=== PATIENT | female | born 1945 | race Caucasian/White ===

== ENCOUNTER 2016-07-08 13:10 | Observation (INO) ==
[2016-07-08] MEDS ORDERED: GI Cocktail 40 ML EACH PO ONE (13:20)
--- NOTE | 2016-07-08 13:23 | Emergency Department Note ---
Disposition Clinical Impression: Atypical chest pain Disposition: Admitted As Inpatient Condition: Fair Time of Disposition: 15:46 Chest Pain HPI - General Chief Complaint: ED Chest Pain Stated Complaint: Chest pain/SUTTON Time Seen by Provider: 07/08/16 13:13 Vital Signs Reviewed: Yes Nursing Notes Reviewed: Yes - History of Present Illness HPI Narrative: Patient complaining of a chest burning sensation that began this morning after she woke up. She states that she took Mylanta and ate some saltine crackers and iced tea and the pain went away. She states that it then returned around 1245 today. She describes the pain as a burning sensation in her throat and in the center of her chest that radiates to her back and up to her right jaw. She was nauseated with this initially but is not at this time. She states this is like her acid reflux. She has recently been changed on medication for her acid reflux. - Related Data Home Medications Medication Instructions Recorded Confirmed Amitriptyline [Elavil] 50 mg PO HS 07/08/16 07/08/16 Atorvastatin [Lipitor] 40 mg PO HS 07/08/16 07/08/16 Canagliflozin [Invokana] 100 mg PO DAILY 07/08/16 07/08/16 Exenatide Microspheres [Bydureon] 2 mg SQ SHEA 07/08/16 07/08/16 FLUoxetine HCl [PROzac] 20 mg PO DAILY 07/08/16 07/08/16 Fluticasone Propionate Nasal 50 mcg NS DAILY 07/08/16 07/08/16 [Flonase] Gabapentin [Neurontin] 300 mg PO TID 07/08/16 07/08/16 Insulin NPH Hum/Reg Insulin Hm 60 unit SQ BID 07/08/16 07/08/16 [Humulin 70/30 Kwikpen] Lisinopril [Zestril] 10 mg PO BID 07/08/16 07/08/16 Meloxicam [Mobic] 15 mg PO DAILY 07/08/16 07/08/16 Metformin HCl [Glucophage] 1,000 mg PO BID 07/08/16 07/08/16 Metoclopramide HCl 5 mg PO ACHS 07/08/16 07/08/16 Oxybutynin [Ditropan] 5 mg PO BID 07/08/16 07/08/16 Pantoprazole Sodium [Protonix] 40 mg PO DAILY 07/08/16 07/08/16 Primidone [Mysoline] 50 mg PO BID 07/08/16 07/08/16 Tramadol HCl [Ultram] 50 mg PO Q4H PRN 07/08/16 07/08/16 Allergies Allergy/AdvReac Type Severity Reaction Status Date / Time Influenza Virus Vaccines AdvReac Fatigued Verified 07/08/16 13:25 Review of Systems: Patient denies any fevers or chills. She denies any recent illnesses. She reports a chest burning and a throat burning sensation that started this morning and was relieved with crackers iced tea and Mylanta. She states it then returned she describes the pain as a burning sensation that goes through the back of her chest and up to her right jaw. She states she initially was nauseated and had shortness of breath with this but is not short of breath or nauseated at this time. She denies any abdominal pain. She denies any swelling or edema to any of her extremities. All systems ED: reviewed and negative except as stated. 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 Absent: scleral icterus - ENT ENT exam: normal exam, normal oropharynx, mucous membranes moist - Neck Neck exam: Present: normal inspection, full ROM, trachea midline - Chest Chest inspection: Present: normal inspection. Absent: tenderness - Respiratory Respiratory exam: Present: normal lung sounds bilaterally. Absent: respiratory distress - Cardiovascular Cardiovascular exam: Present: regular rate, normal rhythm, normal heart sounds - Abdominal Exam Abdominal exam: Present: soft, Non-Tender, normal bowel sounds. Absent: tenderness, distention, guarding, rebound, rigidity, organomegaly - Extremities Exam Extremities exam: Present: normal inspection, full ROM, normal capillary refill. Absent: tenderness, pedal edema - Back Exam Back exam: Present: normal inspection. Absent: tenderness - Neurological Exam Neurological exam: Present: alert, oriented X3 Course Course Narrative: Female patient with a history of diabetes and acid reflux presenting to the emergency department with a new complaint of a chest burning sensation. She states she has burning in her throat as well as her chest that radiates to her back and up to her jaw. She states that she does have acid reflux and this feels similar to those events in the past. She states her pain began this morning after she woke up. It was relieved with saltine crackers, a drink of cold tea, and Mylanta. It then returned or intensely. She denies any cardiac history. She denies any smoking history. She states that her father did have "heart problems" but is unaware of what they were. Patient did receive aspirin prior to arrival to the hospital. We will do an EKG and basic cardiac workup. We will also give patient a GI cocktail. She denies any nausea or shortness of breath at this time. She is in no distress and is otherwise well-appearing. She did receive aspirin in the ambulance en route to the hospital. The dose was 4 baby aspirins per patient. - Reevaluation(s) Reevaluation #1: Patient reassessed. She is resting comfortably in bed. She states her pain is down to one at this time. She states that the GI cocktail did not help with her pain it only made her nauseated. When offered nausea medication she states that she is not nauseated currently. She has also been offered pain medication and she refuses this as well. She is now reporting trouble swallowing while I am in the room. She states this is been going on for "a while." She states that she has been diagnosed with a hiatal hernia but has not been referred to a specialist for this. She denies any coughing or aspiration. Her throat is nonerythematous and nonedematous her tonsils have no exudates. They are not swollen. Time: 13:54 Reevaluation #2: Patient now requesting pain medication. She states that her pain is getting worse in her chest. She describes it as a 3/10. Give her morphine for this pain. We will admit patient for an ACS rule out. She does have EKG changes. Her pain began around 1245 We only have one troponin back which was negative. She will need a second. Time: 14:45 - Consultations Consultation #1: Dr Arboleda accepted Pt in stable condition Time: 14:52 Consultation #2: Patient resting comfortably in bed. She states her pain is gone at this time. She has no request at this time. Time: 15:30 Vital Signs Temperature 98.2 F 07/08/16 13:15 Pulse Rate 99 07/08/16 13:15 Respiratory Rate 18 07/08/16 13:15 Blood Pressure 149/80 07/08/16 13:15 O2 Sat by Pulse Oximetry 95 07/08/16 13:15 Temperature 0 F L 07/08/16 15:31 Pulse Rate 99 07/08/16 13:15 Respiratory Rate 18 07/08/16 15:31 Blood Pressure 152/87 07/08/16 15:31 O2 Sat by Pulse Oximetry 95 07/08/16 13:15 Oxygen Delivery Oxygen Delivery Room Air Chest Pain - Lab Data Result diagrams: 07/08/16 13:33 07/08/16 13:33 Lab Results 07/08/16 07/08/16 07/08/16 Range/Units 13:33 13:33 13:33 WBC 7.6 (4.3-11.1) K/mcL RBC 5.02 H (3.82-4.97) M/mcL Hgb 14.1 (11.5-15.4) g/dL Hct 43.2 (35.3-44.9) % MCV 86.1 (83.0-100.0) fL MCH 28.1 (28.0-33.3) pg MCHC 32.6 (31.6-35.5) g/dL RDW 13.6 (11.5-14.5) % Plt Count 314 (140-400) K/mcL MPV 10.0 (9.4-12.4) fL Immature Gran % 0.3 (0-4) % Seg Neutrophils % 64.0 % Lymphocytes % 27.1 % Monocytes % 5.9 % Eosinophils % 2.4 % Basophils % 0.3 % Neutrophils # 4.9 (1.6-8.9) K/mcL Lymphocytes # 2.1 (0.6-4.6) K/mcL Monocytes # 0.5 (0.0-1.3) K/mcL Eosinophils # 0.2 (0.0-0.6) K/mcL Basophils # 0.0 (0.0-0.2) K/mcL PT 11.5 (9.4-12.1) Seconds INR 1.1 APTT 33.3 (26.0-36.0) Seconds Sodium (136-145) mEq/L Potassium (3.5-4.5) mEq/L Chloride (98-109) mEq/L Carbon Dioxide (19-29) mEq/L BUN (7-20) mg/dL Creatinine (0.57-1.11) mg/dL Est GFR ( Amer) (> 60) Est GFR (Non-Af Amer) (> 60) BUN/Creatinine Ratio (6-26) Glucose (70-99) mg/dL Calculated Osmolality (280-300) Calcium (8.6-10.8) mg/dL Troponin I (0-0.03) ng/mL Lipase 18 (8-78) Units/L 07/08/16 07/08/16 Range/Units 13:33 13:33 WBC (4.3-11.1) K/mcL RBC (3.82-4.97) M/mcL Hgb (11.5-15.4) g/dL Hct (35.3-44.9) % MCV (83.0-100.0) fL MCH (28.0-33.3) pg MCHC (31.6-35.5) g/dL RDW (11.5-14.5) % Plt Count (140-400) K/mcL MPV (9.4-12.4) fL Immature Gran % (0-4) % Seg Neutrophils % % Lymphocytes % % Monocytes % % Eosinophils % % Basophils % % Neutrophils # (1.6-8.9) K/mcL Lymphocytes # (0.6-4.6) K/mcL Monocytes # (0.0-1.3) K/mcL Eosinophils # (0.0-0.6) K/mcL Basophils # (0.0-0.2) K/mcL PT (9.4-12.1) Seconds INR APTT (26.0-36.0) Seconds Sodium 133 L (136-145) mEq/L Potassium 4.8 H (3.5-4.5) mEq/L Chloride 99 (98-109) mEq/L Carbon Dioxide 24 (19-29) mEq/L BUN 19 (7-20) mg/dL Creatinine 1.02 (0.57-1.11) mg/dL Est GFR ( Amer) > 60 (> 60) Est GFR (Non-Af Amer) 54 L (> 60) BUN/Creatinine Ratio 19 (6-26) Glucose 241 H (70-99) mg/dL Calculated Osmolality 286 (280-300) Calcium 10.1 (8.6-10.8) mg/dL Troponin I 0.00 (0-0.03) ng/mL Lipase (8-78) Units/L - Radiology Data Radiology results reviewed: Yes I reviewed the patient's radiology results. I reviewed the images as well as the radiologist's report. - EKG Data EKG attestation: Yes I reviewed and interpreted this EKG. EKG results narrative: Sinus rhythm at a rate of 92. W[place] interval is 162. Respiration is 141. QT is 395. QTC is 445. Patient does have a right bundle branch block. This is new from her previous EKG dated 03/12/2014. There is no ST elevation or depression. There are T-wave inversions in 3 V1 and V2 V3 and V4.
--- NOTE | 2016-07-08 13:40 | Emergency Department Note ---
START Narrative - START START: I examined this patient and my medical decision-making was reviewed with the ELIGIBILITY EXAMINER/PA/Advanced Practice Nurse/Resident Physician. I agree with the documented findings, disposition and treatment plan as described except to the extent set forth below. ED attending note: Patient seen with emergency medicine resident Dr Hardy. We independently evaluated the patient. We independently had [id number] contact with the patient. Please see a copy of his note for details of the history and physical, evaluation, management and disposition of this emergency Department patient. Briefly: 70-year-old female by EMS for chest discomfort. Has a history of reflux and diabetes. Less no cardiac workup is unknown. EKG shows acute changes in the lateral leads as far as a barge block and V2. Compared to an EKG in 2014. Physical exam is otherwise benign. Patient had troponin lipase chest x-ray and other labs. Disposition pending. Patient stable.
[2016-07-08 13:48] LABS: Basophils % 0.3 %; Eosinophils # 0.2 K/mcL (0.0-0.6); Eosinophils % 2.4 %; Hematocrit 43.2 % (35.3-44.9); Hemoglobin 14.1 g/dL (11.5-15.4); Immature Granulocytes % 0.3 % (0-4); Lymphocytes # 2.1 K/mcL (0.6-4.6); Lymphocytes % 27.1 %; Mean Corpuscular HGB Conc 32.6 g/dL (31.6-35.5); Mean Corpuscular Hemoglobin 28.1 pg (28.0-33.3); Mean Corpuscular Volume 86.1 fL (83.0-100.0); Monocytes # 0.5 K/mcL (0.0-1.3); Monocytes % 5.9 %; Neutrophils # 4.9 K/mcL (1.6-8.9); Platelet Count 314 K/mcL (140-400); Red Blood Count 5.02 M/mcL (3.82-4.97); Red Cell Distribution Width 13.6 % (11.5-14.5)
[2016-07-08 13:54] LABS: INR 1.1; Prothrombin Time 11.5 Seconds (9.4-12.1)
[2016-07-08 13:57] LABS: Activated Partial Thrombo Time 33.3 Seconds (26.0-36.0)
[2016-07-08 14:02] LABS: BUN/Creatinine Ratio 19 (6-26); Blood Urea Nitrogen 19 mg/dL (7-20); Calcium 10.1 mg/dL (8.6-10.8); Carbon Dioxide 24 mEq/L (19-29); Chloride 99 mEq/L (98-109); Glucose 241 mg/dL (70-99); Osmolality,Calculated 286 (280-300); Potassium 4.8 mEq/L (3.5-4.5); Sodium 133 mEq/L (136-145); eGFR For African Americans > 60 (> 60); eGFR For Non-African Americans 54 (> 60)
[2016-07-08] MEDS ORDERED: *HR* Morphine 2 MG/ML SYRINGE IVP ONE (14:29)
[2016-07-08] MEDS ORDERED: Naloxone 0.4 MG/ML INJ IVP PRN (16:23)
[2016-07-08] MEDS ORDERED: traMADol 50 MG TABLET PO PRN (16:26)
[2016-07-08] MEDS ORDERED: Nitroglycerin 0.4 MG TAB.SUBL SL PRN (16:33)
[2016-07-08] MEDS ORDERED: *HR* Dextrose 50 % in Water (Syg) 50 ML SYRINGE IVP PRN (16:38)
[2016-07-08] MEDS ORDERED: D5% in Water 1,000 ML IV PRN (16:38)
[2016-07-08] MEDS ORDERED: Dextrose Gel 15 GM PO PRN ×2 (16:38)
--- NOTE | 2016-07-08 16:45 | Internal Med History&Physical ---
Date of Encounter: 07/08/16 Time of Encounter: 16:41 Assessment and Plan (1) Atypical chest pain Current visit: Yes Status: Acute Patient presents with reports of burning, sharp pain to mid chest radiating to back, up neck and to right jaw and right head. Pain was relieved by morphine. Initial troponin negative at 0.0. EKG showed sinus rhythm with HR of 92 and right bundle branch block which is new from previous EKG in 2013. CXR showed no acute process. continuous cardiac tech serial troponins for trend echocardiogram and stress test in the morning. (2) Hypertension Current visit: Yes Status: Acute Continue home dose of lisinopril. Qualifiers: Hypertension type: essential hypertension Qualified Code(s): I10 - Essential (primary) hypertension (3) Type 2 diabetes mellitus Current visit: Yes Status: Acute diabetic diet check blood sugars ACHS Hold home doses of invokana, bydureon, metformin. Basal insulin dose of 42u BID high dose sliding scale correction insulin ACHS hypoglycemic protocol. Qualifiers: Diabetes mellitus complication status: with neurologic complications Diabetes mellitus complication detail: with polyneuropathy Diabetes mellitus extermination inspector insulin use: with senior living use Qualified Code(s): E11.42 - Type 2 diabetes mellitus with diabetic polyneuropathy; Z79.4 - equipment operator intermodal yard (current) use of insulin (4) DVT prophylaxis Current visit: Yes Status: Acute encourage ambulation anti-embolic stockings Lovenox 40mg SQ BID Internal Medicine - H&P: HPI Chief complaint: chest pain Admitted From: Emergency Dept Plans for Post Hospital Care: Home History of present illness: Ms. Alejandro is a 70 year old female with hypertension, diabetes, IBS, acid reflux who presented to the emergency department today with reports of chest pain. She reports she will cut this morning at 6 AM with a sharp burning sensation in her mid chest radiating eating up to her neck, she took Mylanta and drank some tea and had some saltines and the pain went away. She reports at about noon the pain returned with sharp, burning sensation in her mid chest and radiating up to her neck and right jaw and she also had a headache on the right side of her head accompanying the chest pain pain. She had associated shortness of breath and palpitations and she decided to call the squad. She reports mild nausea, but denies any vomiting, abdominal pain, diarrhea. Denies any recent fevers, chills, sweats, body aches. She denies any lightheadedness or dizziness. In the emergency department her evaluation included a troponin which was negative at 0.0, EKG which showed sinus rhythm with heart rate of 92 and showed a right bundle branch block which is new from previous EKG, no ST elevations or depressions, and T-wave inversions in V1, V2, V3, and V4. Chest x -ray showed no acute process. She was hyperglycemic with glucose of 241, and mildly hyperkalemic with potassium of 4.8. On exam, patient is alert and oriented, in no acute distress. Her heart has regular rate and rhythm, lungs are clear bilaterally to auscultation, she has mild epigastric tenderness to palpation. Past Med Surg Social Fam HX - Past Medical History Medical history: diabetes, GERD, hypertension Psychiatric history: anxiety, depression - Past Surgical History Surgical History: cholecystectomy, hysterectomy, knee replacement - Social History Smoking Status: Never smoker Smokeless Tobacco Status: No Alcohol use: none Drug use: none - Family History Father Living Status: Cause of : Cancer Hx Family Respiratory Disorders: Yes Mother Living Status: Still Living Sister Living Status: Internal Medicine - H&P: Meds Amitriptyline [Elavil] 50 mg PO HS 07/08/16 [History] Atorvastatin [Lipitor] 40 mg PO HS 07/08/16 [History] Canagliflozin [Invokana] 100 mg PO DAILY 07/08/16 [History] Exenatide Microspheres [Bydureon] 2 mg SQ SHEA 07/08/16 [History] FLUoxetine HCl [PROzac] 20 mg PO DAILY 07/08/16 [History] Fluticasone Propionate Nasal [Flonase] 50 mcg NS DAILY 07/08/16 [History] Gabapentin [Neurontin] 300 mg PO TID 07/08/16 [History] Insulin NPH Hum/Reg Insulin Hm [Humulin 70/30 Kwikpen] 60 unit SQ BID 07/08/16 [ History] Lisinopril [Zestril] 10 mg PO BID 07/08/16 [History] Meloxicam [Mobic] 15 mg PO DAILY 07/08/16 [History] Metformin HCl [Glucophage] 1,000 mg PO BID 07/08/16 [History] Metoclopramide HCl 5 mg PO ACHS 07/08/16 [History] Oxybutynin [Ditropan] 5 mg PO BID 07/08/16 [History] Pantoprazole Sodium [Protonix] 40 mg PO DAILY 07/08/16 [History] Primidone [Mysoline] 50 mg PO BID 07/08/16 [History] Tramadol HCl [Ultram] 50 mg PO Q4H PRN 07/08/16 [History] Allergies Influenza Virus Vaccines Adverse Reaction (Verified 07/08/16 13:25) Fatigued All Systems PM: A 10-system review of systems was performed and is negative for pertinent findings except as documented above in the HPI. - Constitutional Constitutional: no chills, no fever(s), no night sweats - EENT Eyes: no change in vision, no discharge, no pain, no photophobia Ears: no ear discharge, no ear pain, no tinnitus Nose, mouth and throat: sinus pressure, no dysphagia, no nasal discharge, no neck pain, no sore throat - Cardiovascular Cardiovascular ROS IM: chest pain, dyspnea, palpitations, no diaphoresis, no lightheadedness, no syncope - Respiratory Respiratory: dyspnea, no cough, no wheezing, no excessive phlegm production - Gastrointestinal Gastrointestinal: nausea, no abdominal pain, no diarrhea, no hematemesis, no hematochezia, no melena, no vomiting - Genitourinary Genitourinary: no change in urinary stream, no dysuria, no flank pain, no hematuria - Musculoskeletal Musculoskeletal ROS IM: numbness, tingling (chronic neuropathy in bilateral finders and feet) - Integumentary Integumentary IM: no rash, no unusual bruising - Neurological Neurological ROS: numbness (chronic neuropathy in bilateral fingers and feet), tingling, no confusion, no convulsions, no focal weakness, no tremor(s) - Hematologic/Lymphatic Hematologic/Lymphatic: no easy bruising - Constitutional Vitals: Temp Pulse Resp BP Pulse Ox 0 F L 99 18 152/87 95 07/08/16 15:31 07/08/16 13:15 07/08/16 15:31 07/08/16 15:31 07/08/16 13:15 General appearance: Present: A&O X 3, no acute distress - Head Head exam: Present: atraumatic, normocephalic - Eye Eye exam: Present: PERRL, conjuntiva pink, sclera anicteric Pupils: Present: PERRL - Neck Neck exam general surgery: Present: supple, trachea midline. Absent: lymphadenopathy - Respiratory Respiratory exam: Present: CTAB. Absent: accessory muscle use, rales, rhonchi, wheezes - Cardiovascular Cardiovascular exam: Present: RRR, +S1, +S2. Absent: diastolic murmur, gallop, rubs, systolic murmur - GI/Abdominal GI/Abdominal exam: Present: normal bowel sounds, soft, no peritoneal signs. Absent: distended, tenderness - Extremities Exam Extremities exam: Present: warm, radial pulses palpable and symetrical. Absent : calf tenderness, cyanotic, pedal edema - Neurological Exam Neurological exam: Present: CN II-XII intact, oriented X3, no focal deficits. Absent: facial droop, speech deficit - Skin Skin exam: Present: dry, intact Internal Med - H&P Results - Labs CBC & Chem 7: 07/08/16 13:33 07/08/16 13:33 Labs: All Lab Results (24 Hours) 07/08/16 07/08/16 07/08/16 Range/Units 13:33 13:33 13:33 WBC 7.6 (4.3-11.1) K/mcL RBC 5.02 H (3.82-4.97) M/mcL Hgb 14.1 (11.5-15.4) g/dL Hct 43.2 (35.3-44.9) % MCV 86.1 (83.0-100.0) fL MCH 28.1 (28.0-33.3) pg MCHC 32.6 (31.6-35.5) g/dL RDW 13.6 (11.5-14.5) % Plt Count 314 (140-400) K/mcL MPV 10.0 (9.4-12.4) fL Immature Gran % 0.3 (0-4) % Seg Neutrophils % 64.0 % Lymphocytes % 27.1 % Monocytes % 5.9 % Eosinophils % 2.4 % Basophils % 0.3 % Neutrophils # 4.9 (1.6-8.9) K/mcL Lymphocytes # 2.1 (0.6-4.6) K/mcL Monocytes # 0.5 (0.0-1.3) K/mcL Eosinophils # 0.2 (0.0-0.6) K/mcL Basophils # 0.0 (0.0-0.2) K/mcL PT 11.5 (9.4-12.1) Seconds INR 1.1 APTT 33.3 (26.0-36.0) Seconds Sodium (136-145) mEq/L Potassium (3.5-4.5) mEq/L Chloride (98-109) mEq/L Carbon Dioxide (19-29) mEq/L BUN (7-20) mg/dL Creatinine (0.57-1.11) mg/dL Est GFR ( Amer) (> 60) Est GFR (Non-Af Amer) (> 60) BUN/Creatinine Ratio (6-26) Glucose (70-99) mg/dL Calculated Osmolality (280-300) Calcium (8.6-10.8) mg/dL Troponin I (0-0.03) ng/mL Lipase 18 (8-78) Units/L 07/08/16 07/08/16 Range/Units 13:33 13:33 WBC (4.3-11.1) K/mcL RBC (3.82-4.97) M/mcL Hgb (11.5-15.4) g/dL Hct (35.3-44.9) % MCV (83.0-100.0) fL MCH (28.0-33.3) pg MCHC (31.6-35.5) g/dL RDW (11.5-14.5) % Plt Count (140-400) K/mcL MPV (9.4-12.4) fL Immature Gran % (0-4) % Seg Neutrophils % % Lymphocytes % % Monocytes % % Eosinophils % % Basophils % % Neutrophils # (1.6-8.9) K/mcL Lymphocytes # (0.6-4.6) K/mcL Monocytes # (0.0-1.3) K/mcL Eosinophils # (0.0-0.6) K/mcL Basophils # (0.0-0.2) K/mcL PT (9.4-12.1) Seconds INR APTT (26.0-36.0) Seconds Sodium 133 L (136-145) mEq/L Potassium 4.8 H (3.5-4.5) mEq/L Chloride 99 (98-109) mEq/L Carbon Dioxide 24 (19-29) mEq/L BUN 19 (7-20) mg/dL Creatinine 1.02 (0.57-1.11) mg/dL Est GFR ( Amer) > 60 (> 60) Est GFR (Non-Af Amer) 54 L (> 60) BUN/Creatinine Ratio 19 (6-26) Glucose 241 H (70-99) mg/dL Calculated Osmolality 286 (280-300) Calcium 10.1 (8.6-10.8) mg/dL Troponin I 0.00 (0-0.03) ng/mL Lipase (8-78) Units/L
[2016-07-08 17:17] LABS: Hemoglobin A1C 7.7 %
[2016-07-08] MEDS: Insulin LISPRO 300 UNITS/3 ML VIAL SQ SCH (18:30)
[2016-07-08] MEDS: Primidone 50 MG TABLET PO SCH (20:32)
[2016-07-08] MEDS: Gabapentin 300 MG CAPSULE PO SCH (20:32)
[2016-07-08] MEDS: Insulin DETEMIR 100 UNIT/ML X5UNITS SQ SCH (20:32)
[2016-07-08] MEDS ORDERED: Insulin LISPRO 300 UNITS/3 ML VIAL SQ SCH (21:00)
[2016-07-09 01:26] LABS: Basophils % 0.4 %; Eosinophils # 0.2 K/mcL (0.0-0.6); Eosinophils % 2.9 %; Hematocrit 41.2 % (35.3-44.9); Hemoglobin 13.4 g/dL (11.5-15.4); Immature Granulocytes % 0.4 % (0-4); Immature Platelets 3.1 % (1.1-6.1); Lymphocytes # 2.9 K/mcL (0.6-4.6); Lymphocytes % 38.1 %; Mean Corpuscular HGB Conc 32.5 g/dL (31.6-35.5); Mean Corpuscular Hemoglobin 28.2 pg (28.0-33.3); Mean Corpuscular Volume 86.7 fL (83.0-100.0); Mean Platelet Volume 10.2 fL (9.4-12.4); Monocytes # 0.7 K/mcL (0.0-1.3); Monocytes % 8.7 %; Neutrophils # 3.7 K/mcL (1.6-8.9); Platelet Count 303 K/mcL (140-400); Red Blood Count 4.75 M/mcL (3.82-4.97); Red Cell Distribution Width 13.7 % (11.5-14.5); Segmented Neutrophils % 49.5 %
[2016-07-09 03:32] LABS: BUN/Creatinine Ratio 21 (6-26); Blood Urea Nitrogen 20 mg/dL (7-20); Calcium 9.6 mg/dL (8.6-10.8); Carbon Dioxide 24 mEq/L (19-29); Chloride 101 mEq/L (98-109); Glucose 250 mg/dL (70-99); Osmolality,Calculated 293 (280-300); Sodium 136 mEq/L (136-145); eGFR For African Americans > 60 (> 60); eGFR For Non-African Americans 57 (> 60)
[2016-07-09] MEDS ORDERED: Regadenoson 0.4 MG/5 ML SYRINGE IVP ONE (06:35)
[2016-07-09] MEDS ORDERED: FLUoxetine 20 MG CAPSULE PO SCH (09:00)
[2016-07-09] MEDS ORDERED: Fluticasone Propionate Nasal 50 MCG/SPRAY BOTTLE NS SCH (09:00)
[2016-07-09] MEDS ORDERED: NON-FORMULARY MEDICATION 1 EACH EACH (Pantoprazole Sodium [Protonix] 40 MG) PO SCH (09:00)
--- NOTE | 2016-07-09 09:08 | Nuclear Medicine Stress Report ---
Regadenoson Nuclear Stress Name: Sonal Alejandro Date of Study: 07/09/2016 Date: 1945 Ht: 63.0 in Medical Record#: [id number] Age: 70 Wt: 214.0 lb Gender: Female Order #: [id number] Location: [facility] Room: [facility] Supervising Provider: Bentley Davis CNP Reading Physician: Cristiane Villarreal DO Ordering Physician: Harpal Valdes DO Primary Care Physician: Enrique Boykin DO Stress Technologist: Eliezer Still, BENCH GRINDER, [facility] Precipitator: Anatoly Greene Indications: Chest Pain Impression: Perfusion imaging was negative for ischemia or infarct. Pharmacologic ECG was negative for ischemia at the level of heart rate achieved. Gated EF = 67%. History: Hypertension Diabetes Hypercholesteremia Stress Test Summary: Stress Test Type: Pharmacologic Regadenoson 0.4mg/5ml given IV Baseline Information: Initial Heart Rate: 90 Blood Pressure: 124/76 Stress Information: Stress Time: 4 min 00 sec Test Terminated Due to (primary): As per protocol Maximum Blood Pressure: 118/64 Maximum Heart Rate: 104 Percent Maximum Heart Rate Achieved: 68 Double Product: 22834 METS Reached: 1 Symptoms: Lightheadness Nuclear Summary: SPECT myocardial perfusion imaging using Tc99m Sestamibi given intravenously was performed at rest and following cardiac stress testing. The resting images were obtained following initial dose of 11.5 mCi. Following stress an additional dose of 35.2 mCi was given at peak exercise or 30 seconds post regadenoson infusion. Medication Given: Time Medication Dose Units Route Findings: Stress Note * Resting ECG demonstrated normal sinus rhythm with RBBB and LAFB. * Pharmacologic stress ECG is negative for ischemia at level of heart rate achieved. * No arrhythmias were noted during stress. * Patient had no chest pain during stress. Hemodynamic responses * Normal hemodynamic responses to pharmacologic stress. Study Quality * Study quality was fair. Gated EF % * Gated EF = 67%. Left Ventricle * The left ventricle is not dilated. TID * No evidence of transient ischemic dilatation. Lung Uptake * There is no evidence of increase lung uptake. NORMALS * Normal wall motion. * Normal segmental perfusion in stress. * Normal Segmental Perfusion in rest. Updated by Cristiane Villarreal on 07/09/2016 9:02:36 AM electronically signed on 07/09/2016 9:02:54 AM with status of Final
[2016-07-09] MEDS: Primidone 50 MG TABLET PO SCH (09:26)
[2016-07-09] MEDS: Gabapentin 300 MG CAPSULE PO SCH (09:27)
[2016-07-09] MEDS: Insulin LISPRO 300 UNITS/3 ML VIAL SQ SCH ×2 (09:28→12:37)
[2016-07-09] MEDS: Insulin DETEMIR 100 UNIT/ML X5UNITS SQ SCH (09:31)
[2016-07-09] MEDS ORDERED: Chloraseptic Spray 177 ML BOTTLE MM PRN (09:34)
[2016-07-09] MEDS ORDERED: Simethicone 80 MG TAB.CHEW PO PRN (10:28)
--- NOTE | 2016-07-09 11:15 | ECHO - Doppler Report ---
Echocardiogram Name: Sonal Alejandro Date of Study: 07/09/2016 Date: 1945 Ht: 63.0 in Medical Record#: [id number] Age: 70 Wt: 214.0 lb Gender: Female BSA: 1.99 Order #: [id number] Location: [facility] Room #: 2NE22 Reading Physician: Cristiane Villarreal DO [employer] Slitting Machine Operator: NEERU VelazquezT, [facility] Ordering Physician: Tamiko Slade CNP Primary Physician: Enrique Boykin DO Indications: Chest pain Impressions: LVEF 65%. Normal left ventricular size and systolic function. There is evidence of mild diastolic dysfunction of the left ventricle. Normal right ventricular size and function. No significant valvular dysfunction. No pulmonary hypertension. Left Ventricular Wall Motion: Rest Echo Findings All wall segments showed normal motion. Findings: Study Quality * Technically sub-optimal due to body habitus. ECG Findings * Normal sinus rhythm. Left Ventricle * LVEF 65%. * Normal LV chamber size, wall thickness and function. * Mild left ventricular diastolic dysfunction. Left Atrium * Normal left atrial size. Mitral Valve * Normal mitral valve structure. * No mitral stenosis. * No mitral regurgitation. Aortic Valve * No aortic regurgitation. * Aortic valve not well visualized. * No aortic stenosis. Tricuspid Valve * Tricuspid valve not well visualized. * No tricuspid regurgitation. Pulmonic Valve * Pulmonic valve is not well visualized. * No pulmonic stenosis. * No pulmonic regurgitation. Pulmonary Artery * Pulmonary artery not well visualized. Right Ventricle * Normal right ventricular structure and function. Right Atrium * Normal right atrial size. Interatrial Septum * Interatrial septum not well evaluated. IVC * The IVC is not well evaluated. Pericardium * There is no pericardial effusion present. Aorta * Not fully visualized. History Hypertension Diabetes Hypercholesteremia Family History of CAD 2015 a Previous Echo was performed. Measurements: BP: 127/ 75 2D Normal Values IVSd: 1.20 cm 0.6 - 1.0 cm LVIDd: 3.80 cm 3.7 - 5.6 cm LVPWd: 1.20 cm 0.6 - 1.1 cm LVIDs: 2.70 cm 1.5 - 3.6 cm AO: 2.80 cm < 4.0 cm LA: 3.00 cm 2.0 - 4.0cm %FS: 28.90 cm >25 % LA volume: 33 Mitral Valve Peak E:.63 m/sec Peak A:1.20 m/sec E/A Ratio:0.5 Tricuspid Valve TV Regurg Peak Grad: 18.00mmHg TV Regurg Peak [place]: 2.11m/sec Updated by Cristiane Villarreal on 07/09/2016 11:08:34 AM electronically signed on 07/09/2016 11:09:17 AM with status of Final Wall Motion [place]: 1=Normal, 2=Hypokinesis, 3=Akinesis, 4=Dyskinesis, 5=Aneurysmal, 6=Hyperkinetic, X=Not Visualized (Blank)=Missing
--- NOTE | 2016-07-09 11:53 | Discharge Summary ---
<Tee Ruiz - Last Filed: 07/09/16 13:32> Date of Encounter: 07/09/16 Time of Encounter: 11:51 - Discharge Diagnosis (1) GERD (gastroesophageal reflux disease) Priority: Primary Status: Acute Qualifiers: Esophagitis presence: esophagitis presence not specified Qualified Code(s) : K21.9 - Gastro-esophageal reflux disease without esophagitis (2) Atypical chest pain Priority: Primary Status: Acute (3) Hypertension Priority: Secondary Status: Chronic Qualifiers: Hypertension type: essential hypertension Qualified Code(s): I10 - Essential (primary) hypertension (4) Type 2 diabetes mellitus Priority: Secondary Status: Chronic Qualifiers: Diabetes mellitus complication status: with neurologic complications Diabetes mellitus complication detail: with polyneuropathy Diabetes mellitus superintendent terminal insulin use: with superintendent terminal use Qualified Code(s): E11.42 - Type 2 diabetes mellitus with diabetic polyneuropathy; Z79.4 - intermediate frame tender (current) use of insulin - Discharge Medications Prescriptions: Pantoprazole Sodium [Protonix] 40 mg PO DAILY #30 tablet.dr Bayron Medications: Amitriptyline [Elavil] 50 mg PO HS 07/08/16 [History] Atorvastatin [Lipitor] 40 mg PO HS 07/08/16 [History] Canagliflozin [Invokana] 100 mg PO DAILY 07/08/16 [History] Exenatide Microspheres [Bydureon] 2 mg SQ SHEA 07/08/16 [History] FLUoxetine HCl [Prozac] 20 mg PO DAILY 07/08/16 [History] Fluticasone Propionate Nasal [Flonase] 50 mcg NS DAILY 07/08/16 [History] Gabapentin [Neurontin] 300 mg PO TID 07/08/16 [History] Insulin NPH Hum/Reg Insulin Hm [Humulin 70/30 Kwikpen] 60 unit SQ BID 07/08/16 [ History] Lisinopril [Zestril] 10 mg PO BID 07/08/16 [History] Metformin HCl [Glucophage] 1,000 mg PO BID 07/08/16 [History] Metoclopramide HCl 5 mg PO ACHS 07/08/16 [History] Oxybutynin [Ditropan] 5 mg PO BID 07/08/16 [History] Primidone [Mysoline] 50 mg PO BID 07/08/16 [History] Tramadol HCl [Ultram] 50 mg PO Q4H PRN 07/08/16 [History] Pantoprazole Sodium [Protonix] 40 mg PO DAILY #30 tablet. 07/09/16 [Rx] Allergies/Adverse Reactions: Allergies Influenza Virus Vaccines Adverse Reaction (Verified 07/08/16 13:25) Fatigued Procedures/tests Complete & Pending: Procedures Performed prior 72 hours Category Date Time Status NM claudia perf SPECT multi [NM] Routine Exams 07/08/16 16:35 Taken EV echocardiogram Routine Y 07/09/16 16:35 Completed SP pharm nuclear stress Routine Y 07/09/16 07:30 Completed Date of admission: 07/08/16 15:22 Primary care physician: Nirmal Arguelles Discharging clinician: Tee Ruiz Anticipated date of discharge: 07/09/16 - Patient Status Disposition: Home, Self-Care Condition: Fair Functional capacity at discharge: independent ambulation Overall status at discharge: patient is progressing back to baseline - Discharge Instructions Instructions: Chest Pain (DC), Gastroesophageal Reflux Disease (DC) Follow Up With: Enrique Boykin DO [Primary Care Provider] - 07/14/16 8:30 am (3@1200) Additional Instructions: Please follow up with your primary care physician as scheduled. Please restart your home medications. Please start protonix daily. Please return for new or worsening symptoms. - Diet and Activity Activity: increase activity as tolerated Diet: advance to your usual diet Interval History: Patient seen and examined at bedside. Patient states she feels better today. Patient has no complaints. Patient denies chest pain, shortness of breath. Hospital course: Ms. Alejandro is a 70 year old female with history of diabetes, hypertension, hyperlipidemia presented to the emergency department with chest pain. Patient had an initial episode of chest pain that she states started in her stomach and traveled up her chest, she took Mylanta and had initial relief. She then had a recurrent episode of similar chest pain that would not go away so she presented to the emergency department. Patient was admitted for chest pain rule out, she had negative troponins, stress test and echocardiogram performed this morning were unremarkable, no evidence of ischemia. At the time of discharge the patient was chest pain-free and the patient herself attributed her symptoms to GERD. Patient will be discharged home in stable condition. - Time Spent with Patient Total time spent providing and/or coordinating discharge services: - Constitutional Vitals: Temp Pulse Resp BP Pulse Ox 98.6 F 88 16 130/78 95 07/09/16 08:58 07/09/16 08:58 07/09/16 08:58 07/09/16 08:58 07/09/16 08:58 General appearance: Present: A&O X 3, no acute distress <Harpal Valdes - Last Filed: 07/09/16 14:15> Date of Encounter: 07/09/16 - Discharge Diagnosis (1) Atypical chest pain Status: Acute (2) GERD (gastroesophageal reflux disease) Status: Acute Qualifiers: Esophagitis presence: esophagitis presence not specified Qualified Code(s) : K21.9 - Gastro-esophageal reflux disease without esophagitis (3) Hypertension Status: Chronic Qualifiers: Hypertension type: essential hypertension Qualified Code(s): I10 - Essential (primary) hypertension (4) Type 2 diabetes mellitus Status: Chronic Qualifiers: Diabetes mellitus complication status: with neurologic complications Diabetes mellitus complication detail: with polyneuropathy Diabetes mellitus mcfp insulin use: with superintendent terminal use Qualified Code(s): E11.42 - Type 2 diabetes mellitus with diabetic polyneuropathy; Z79.4 - care home (current) use of insulin Procedures/tests Complete & Pending: Procedures Performed prior 72 hours Category Date Time Status NM claudia perf SPECT multi [NM] Routine Exams 07/08/16 16:35 Taken EV echocardiogram Routine Y 07/09/16 16:35 Completed SP pharm nuclear stress Routine Y 07/09/16 07:30 Completed Date of admission: 07/08/16 15:22 Primary care physician: Nirmal Arguelles Hospital course: Ms. Alejandro is a 70 year old female - Time Spent with Patient Total time spent providing and/or coordinating discharge services: - Constitutional Vitals: Temp Pulse Resp BP Pulse Ox 98.9 F 86 16 148/66 93 L 07/09/16 11:57 07/09/16 11:57 07/09/16 11:57 07/09/16 11:57 07/09/16 11:57 - Attending Attestation I examined this patient and my medical decision-making was reviewed with the Resident Physician on 07/09/16. I agree with the documented findings, disposition and treatment plan as described except to the extent set forth below. Ms. Alejandro is feeling OK today. She still has some gassy feeling but no new issues. Stress test negative. Echo good. Feels ready to go home. Exam Alert. Comfortable Heart reg No wheeze No edema I/P 1. Chest pain due to GERD 2. HTN 3. DM Plan d/c today with outpatient follow up.
[2016-07-09 12:03] VITALS: BP 148/66
--- NOTE | 2016-07-11 16:10 | Electrocardiograph Report ---
[facility] [employer] Test Date: 2016-07-08 Pat Name: Sonal Alejandro Department: 104 Room: 2NE22 Gender: F Plan Coordinator: : 1945 Requested By: Jeanna Hardy Order Number: [id number] Reading MD: Yan Carter MD Measurements Intervals [place] Rate: 92 P: 36 NH: 162 QRS: 65 QRSD: 141 T: -23 QT: 395 QTc: 445 Interpretive Statements SINUS RHYTHM RIGHT BUNDLE BRANCH BLOCK Electronically Signed On 07-11-2016 16:08:01 EST by Yan Carter MD
== END 2016-07-09 14:00 | disposition home or self-care (01) ==
LOC: EMEROO 13:10 → 2NENU 13:10
PROVIDERS: ADMIT Internal Medicine; ATTEND Internal Medicine

== ENCOUNTER 2017-05-27 11:27 | Observation (INO) ==
--- NOTE | 2017-05-26 16:43 | Discharge Summary ---
<Yarelis Yañez E - Last Filed: 05/26/17 16:40> Date of Encounter: 05/26/17 - Discharge Diagnosis (1) Osteoarthritis of left knee Priority: Primary Status: Chronic Qualifiers: Osteoarthritis type: unspecified Qualified Code(s): M17.12 - Unilateral primary osteoarthritis, left knee (2) Insulin dependent diabetes mellitus Priority: Secondary Status: Chronic (3) HTN (hypertension) Priority: Secondary Status: Chronic Qualifiers: Hypertension type: unspecified Qualified Code(s): I10 - Essential (primary ) hypertension (4) HLD (hyperlipidemia) Priority: Secondary Status: Chronic Qualifiers: Hyperlipidemia type: unspecified Qualified Code(s): E78.5 - Hyperlipidemia , unspecified (5) OAB (overactive bladder) Priority: Secondary Status: Chronic (6) Obesity Priority: Secondary Status: Chronic Qualifiers: Obesity type: unspecified obesity type Obesity classification: unspecified obesity classification Serious obesity comorbidity presence: unspecified whether serious comorbidity present Qualified Code(s): E66.9 - Obesity, unspecified (7) Depression Priority: Secondary Status: Chronic Qualifiers: Depression Type: unspecified Qualified Code(s): F32.9 - Major depressive disorder, single episode, unspecified (8) Diabetic neuropathy Priority: Secondary Status: Chronic Qualifiers: Diabetes mellitus type: type 2 Diabetes mellitus complication detail: with other neurological complication Qualified Code(s): E11.49 - Type 2 diabetes mellitus with other diabetic neurological complication (9) Status post total right knee replacement Priority: Secondary Status: Chronic - Discharge Medications Home Medications: Amitriptyline [Elavil] 50 mg PO HS 07/08/16 [History] FLUoxetine HCl [Prozac] 20 mg PO DAILY 07/08/16 [History] Fluticasone Propionate Nasal [Flonase] 50 mcg NS DAILY 07/08/16 [History] Gabapentin [Neurontin] 300 mg PO TID 07/08/16 [History] Insulin NPH Hum/Reg Insulin Hm [Humulin 70/30 Kwikpen] 60 unit SQ BID 07/08/16 [ History] Lisinopril [Zestril] 10 mg PO BID 07/08/16 [History] Metoclopramide HCl 5 mg PO ACHS 07/08/16 [History] Oxybutynin [Ditropan] 5 mg PO BID 07/08/16 [History] Primidone [Mysoline] 50 mg PO BID 07/08/16 [History] Tramadol HCl [Ultram] 50 mg PO Q4H PRN 07/08/16 [History] Aspirin Enteric Coated [Aspirin EC] 325 mg PO DAILY 21 Days #21 tablet. [Rx] OxyCODONE Immed Rel [Roxicodone 5 MG] 5 mg PO Q6HR PRN 7 Days #28 tablet [Rx] Colestipol HCl [Colestid] 2 gm PO BID 05/27/17 [History] Empagliflozin [Jardiance] 10 mg PO DAILY 05/27/17 [History] Metformin HCl [Glucophage] 1,000 mg PO BID 05/27/17 [History] Pantoprazole Sodium [Protonix] 40 mg PO DAILY 05/27/17 [History] Rosuvastatin Calcium [Crestor] 20 mg PO HS 05/27/17 [History] Allergies/Adverse Reactions: 3 Allergy/AdvReac Type Severity Reaction Status Date / Time Influenza Virus Vaccines AdvReac Anaphylaxis Verified 05/27/17 12:55 nicotine AdvReac flu like Verified 05/27/17 12:55 symptoms Primary care physician: Nirmal Arguelles - Patient Status Disposition: Home, Self-Care Condition: Good - Discharge Instructions Follow Up With: Enrique Boykin DO [Primary Care Provider] - - Hospital Course Hospital course: Ms. Alejandro is a 71 year old female - Time Spent with Patient Total time spent providing and/or coordinating discharge services: <Too Schmidt - Last Filed: 05/28/17 10:15> Date of Encounter: 05/28/17 Time of Encounter: 10:15 - Discharge Diagnosis (1) Hypertension Priority: Secondary Status: Chronic Qualifiers: Hypertension type: essential hypertension Qualified Code(s): I10 - Essential (primary) hypertension (2) Type 2 diabetes mellitus Priority: Secondary Status: Chronic Qualifiers: Diabetes mellitus complication status: with neurologic complications Diabetes mellitus complication detail: with polyneuropathy Diabetes mellitus half-way insulin use: with half-way use Qualified Code(s): E11.42 - Type 2 diabetes mellitus with diabetic polyneuropathy; Z79.4 - FDC (current) use of insulin (3) DVT prophylaxis Priority: Secondary Status: Chronic (4) GERD (gastroesophageal reflux disease) Priority: Secondary Status: Chronic Qualifiers: Esophagitis presence: esophagitis presence not specified Qualified Code(s) : K21.9 - Gastro-esophageal reflux disease without esophagitis (5) Aphthous ulcer Priority: Secondary Status: Inactive (6) Osteoarthritis of left knee Priority: Primary Status: Chronic Qualifiers: Osteoarthritis type: unspecified Qualified Code(s): M17.12 - Unilateral primary osteoarthritis, left knee (7) Insulin dependent diabetes mellitus Priority: Secondary Status: Chronic (8) HLD (hyperlipidemia) Priority: Secondary Status: Chronic Qualifiers: Hyperlipidemia type: unspecified Qualified Code(s): E78.5 - Hyperlipidemia , unspecified (9) OAB (overactive bladder) Priority: Secondary Status: Chronic (10) Depression Priority: Secondary Status: Chronic Qualifiers: Depression Type: unspecified Qualified Code(s): F32.9 - Major depressive disorder, single episode, unspecified (11) Status post total right knee replacement Priority: Secondary Status: Chronic (12) Status post total left knee replacement Priority: Primary Status: Acute Primary care physician: Nirmal Arguelles - Patient Status Functional capacity at discharge: uses cane/walker Overall status at discharge: patient is progressing back to baseline - Hospital Course Hospital course: Ms. Alejandro is a 71 year old female Status post left total knee replacement The patient had an uneventful postoperative course. They received antibiotics and physical therapy and were discharged in stable condition. There will follow -up in the office in 2 weeks. - Time Spent with Patient Total time spent providing and/or coordinating discharge services:
--- NOTE | 2017-05-26 16:44 | Physician Discharge Referral ---
Home Health/Hosp Referral Info Transfer to: Home Health Attending Provider: Dr Too Schmidt - Diagnosis (1) Osteoarthritis of left knee Priority: Primary Status: Chronic (2) Insulin dependent diabetes mellitus Priority: Secondary Status: Chronic (3) HTN (hypertension) Priority: Secondary Status: Chronic (4) HLD (hyperlipidemia) Priority: Secondary Status: Chronic (5) OAB (overactive bladder) Priority: Secondary Status: Chronic (6) Obesity Priority: Secondary Status: Chronic (7) Depression Priority: Secondary Status: Chronic (8) Diabetic neuropathy Priority: Secondary Status: Chronic (9) Status post total right knee replacement Priority: Secondary Status: Chronic (10) Status post total left knee replacement Priority: Primary Status: Acute - Respiratory Orders Smoking Cessation: Smoking cessation has been advised. For more information, call the [employer] Quit Line at 3-116-XLFF-NOW. - Dressing/Wound Care Site: left knee Type of Dressing/Treatments w/Frequency: Opsite placed. Keep dressing intact until first follow up appointment. If > 50% saturated, notify office, remove dressing and place appropriate dressing back in place. Leave Zipline intact. Opsite dressing is water resistant, not water- proof. OK to shower, but do not get dressing wet. - Diet/Nutrition Diet/Nutrition Orders: Regular - Activity Activity Orders: Up ad ismael, Ambulate, Chair, Walker Activity: List: Total Knee replacement Precautions x 6 weeks Apply cold therapy wrap 3-6x/day for 20 minutes at a time. Encourage ambulation throughout the day and incentive spirometer 10x/hour. Elevate affected extremity above heart as tolerated. Brace: Wear knee immobilizer at night x 2 weeks. - Services Needed Following services are medically necessary services: Nursing, Home Health Aide, Physical Therapy, Occupational Therapy - Transfer Medications Prescriptions: OxyCODONE Immed Rel [Roxicodone 5 MG] 5 mg PO Q6HR PRN 7 Days #28 tablet PRN Reason: Pain Aspirin Enteric Coated [Aspirin EC] 325 mg PO DAILY 21 Days #21 tablet.dr Verma Medications: Amitriptyline [Elavil] 50 mg PO HS 07/08/16 [History] Atorvastatin [Lipitor] 40 mg PO HS 07/08/16 [History] Canagliflozin [Invokana] 100 mg PO DAILY 07/08/16 [History] Exenatide Microspheres [Bydureon] 2 mg SQ SHEA 07/08/16 [History] FLUoxetine HCl [Prozac] 20 mg PO DAILY 07/08/16 [History] Fluticasone Propionate Nasal [Flonase] 50 mcg NS DAILY 07/08/16 [History] Gabapentin [Neurontin] 300 mg PO TID 07/08/16 [History] Insulin NPH Hum/Reg Insulin Hm [Humulin 70/30 Kwikpen] 60 unit SQ BID 07/08/16 [ History] Lisinopril [Zestril] 10 mg PO BID 07/08/16 [History] Metformin HCl [Glucophage] 1,000 mg PO BID 07/08/16 [History] Metoclopramide HCl 5 mg PO ACHS 07/08/16 [History] Oxybutynin [Ditropan] 5 mg PO BID 07/08/16 [History] Primidone [Mysoline] 50 mg PO BID 07/08/16 [History] Tramadol HCl [Ultram] 50 mg PO Q4H PRN 07/08/16 [History] Pantoprazole Sodium [Protonix] 40 mg PO DAILY #30 tablet. 07/09/16 [Rx] Albuterol Sulfate [Albuterol Inhaler] 2 puff IH QID #1 inhaler 01/03/17 [Rx] Nystatin [Nystatin Suspension] 100,000 units PO QID #120 ml 01/03/17 [Rx] Benzonatate [Tessalon] 100 mg PO TID #15 capsule 01/24/17 [Rx] Chlorhexidine Gluconate [Betasept] 10 ml PO TID #118 ml 01/24/17 [Rx] Clindamycin HCl [Cleocin HCl] 300 mg PO TID #30 cap 01/24/17 [Rx] Guaifenesin [Mucinex] 600 mg PO BID #30 tab.er.12h 01/24/17 [Rx] methylPREDNISolone [Medrol] 4 mg PO DAILY 5 Days tablet 01/24/17 [Rx] Benzonatate [Tessalon] 200 mg PO TID PRN #30 capsule 05/05/17 [Rx] Guaifenesin [Mucinex] 600 mg PO BID #20 tab.er.12h 05/05/17 [Rx] cephALEXin [Keflex] 500 mg PO QID #40 capsule 05/05/17 [Rx] Aspirin Enteric Coated [Aspirin EC] 325 mg PO DAILY 21 Days #21 tablet. [Rx] OxyCODONE Immed Rel [Roxicodone 5 MG] 5 mg PO Q6HR PRN 7 Days #28 tablet [Rx] Allergies/Adverse Reactions: 3 Allergy/AdvReac Type Severity Reaction Status Date / Time Influenza Virus Vaccines AdvReac Anaphylaxis Verified 05/14/17 14:31 nicotine AdvReac flu like Verified 05/14/17 14:31 symptoms Certification: Further, I certify that my clinical findings support that this patient is homebound (i.e. absences from home require considerable and taxing effort and are for medical reasons or taoism services or infrequently or short duration when for other reasons) because: Homebound Reason: Post-surgery restriction and or conditions limit ability to leave home Attestation: My signature below is to certify that this patient is under my care and that I, or nurse practitioner, or a physician blood donor unit assistant working with me, has a face-to- face encounter with this patient.
[~2017-05-27 11:27] MED LIST: Povidone-Iodine 22.5 ML, Sodium Chloride IRRigation 500 ML IR ONE; Povidone-Iodine 5% 60 ML, Sodium Chloride IRRigation 500 ML IR ONE
[2017-05-27] MEDS ORDERED: CeFAZolin Syr 2,000MG/20 ML 2,000 MG/20 ML SYRINGE IVPB ONE (11:50)
[2017-05-27] MEDS ORDERED: Famotidine 20 MG/2 ML VIAL IVP ONE (12:12)
[2017-05-27] MEDS ORDERED: Gabapentin 300 MG CAPSULE PO ONE (12:12)
--- NOTE | 2017-05-27 12:12 | History & Physical Report ---
Date of Encounter: 05/27/17 Time of Encounter: 12:12 24 Hour HP Update - Instructions Instructions: If the History and Physical is less than 30 days old and was completed prior to A.M. admission and or procedure and has NOT been updated on calendar day of procedure please complete this update prior to performing procedure. - Update Patient reports changes in Medical Condition: No Changes in examination, assessment, or condition: No Changes in Medication: No Preop tests/diagnostics Reviewed: Yes Surgery Remains Indicated: Yes Consent for Planned Operative Procedure(s) Verified: Yes - Pre-Operative Checklist Preoperative Checklist Indicated: No Prophylactic Antibiotic Ordered: Yes Is VTE Prophylaxis Indicated?: Yes
[2017-05-27] MEDS ORDERED: ROPIVACAINE HCL/PF 0.5% 30 ML VIAL ONE (12:16)
--- NOTE | 2017-05-27 12:39 | Anesthesia Evaluation PreOp ---
Date of Encounter: 05/27/17 Time of Encounter: 12:30 - Past History Planned Operation: Lt TKA Cardiac History: HTN, Hyperlipidemia Pulmonary History: Denies Any Significant HX ACADEMIC AFFAIRS SPECIALIST History: Other (Neuropathy) Other Medical History: Diabetes Type II, Other (Obese) Anesthesia History: No Prior Anesthetic Complications : No Alcohol Use: none Drug use: none Medications and Allergies Amitriptyline [Elavil] 50 mg PO HS 07/08/16 [History] Atorvastatin [Lipitor] 40 mg PO HS 07/08/16 [History] Canagliflozin [Invokana] 100 mg PO DAILY 07/08/16 [History] Exenatide Microspheres [Bydureon] 2 mg SQ SHEA 07/08/16 [History] FLUoxetine HCl [Prozac] 20 mg PO DAILY 07/08/16 [History] Fluticasone Propionate Nasal [Flonase] 50 mcg NS DAILY 07/08/16 [History] Gabapentin [Neurontin] 300 mg PO TID 07/08/16 [History] Insulin NPH Hum/Reg Insulin Hm [Humulin 70/30 Kwikpen] 60 unit SQ BID 07/08/16 [ History] Lisinopril [Zestril] 10 mg PO BID 07/08/16 [History] Metformin HCl [Glucophage] 1,000 mg PO BID 07/08/16 [History] Metoclopramide HCl 5 mg PO ACHS 07/08/16 [History] Oxybutynin [Ditropan] 5 mg PO BID 07/08/16 [History] Primidone [Mysoline] 50 mg PO BID 07/08/16 [History] Tramadol HCl [Ultram] 50 mg PO Q4H PRN 07/08/16 [History] Pantoprazole Sodium [Protonix] 40 mg PO DAILY #30 tablet. 07/09/16 [Rx] Albuterol Sulfate [Albuterol Inhaler] 2 puff IH QID #1 inhaler 01/03/17 [Rx] Nystatin [Nystatin Suspension] 100,000 units PO QID #120 ml 01/03/17 [Rx] Benzonatate [Tessalon] 100 mg PO TID #15 capsule 01/24/17 [Rx] Chlorhexidine Gluconate [Betasept] 10 ml PO TID #118 ml 01/24/17 [Rx] Clindamycin HCl [Cleocin HCl] 300 mg PO TID #30 cap 01/24/17 [Rx] Guaifenesin [Mucinex] 600 mg PO BID #30 tab.er.12h 01/24/17 [Rx] methylPREDNISolone [Medrol] 4 mg PO DAILY 5 Days tablet 01/24/17 [Rx] Benzonatate [Tessalon] 200 mg PO TID PRN #30 capsule 05/05/17 [Rx] Guaifenesin [Mucinex] 600 mg PO BID #20 tab.er.12h 05/05/17 [Rx] cephALEXin [Keflex] 500 mg PO QID #40 capsule 05/05/17 [Rx] Aspirin Enteric Coated [Aspirin EC] 325 mg PO DAILY 21 Days #21 tablet. [Rx] OxyCODONE Immed Rel [Roxicodone 5 MG] 5 mg PO Q6HR PRN 7 Days #28 tablet [Rx] 3 Allergy/AdvReac Type Severity Reaction Status Date / Time Influenza Virus Vaccines AdvReac Anaphylaxis Verified 05/14/17 14:31 nicotine AdvReac flu like Verified 05/14/17 14:31 symptoms - Meds/Allergy Pre-op Review Medications Reviewed: Yes Allergies Reviewed: Yes Beta Blockers on Current Med List: No Anesthesia Results - Labs Laboratory Tests 05/14/17 05/14/17 14:45 14:45 Hgb 12.2 Hct 39.0 Plt Count 314 Sodium 138 Potassium 4.7 BUN 9 Creatinine 0.98 - Imaging EKG: report reviewed (SR Rt BBB) Additional studies: Stress Test negative for ischemia EF 67% Anesthesia Exam O2 Sat Height 1.64 m Height 1.64 m Height 1.64 m Weight 97.069 kg Weight 97.069 kg Weight 97.069 kg O2 Sat by Pulse Oximetry 94 O2 Sat by Pulse Oximetry 94 Vital Signs Temp Pulse Resp BP Pulse Ox 97.7 F 97 18 116/70 94 05/27/17 11:56 05/27/17 11:56 05/27/17 11:56 05/27/17 11:56 05/27/17 11:56 Height: 5'4 Weight: 214 lbs NPO (# of Hours): MN Pain Scale: 0 - HEENT Pupil (Motor): Pupils equal, EOMI Mallampati: III Teeth: Normal Oral Opening: Less than or equal to 3 - ACADEMIC AFFAIRS SPECIALIST LOC: Oriented ACADEMIC AFFAIRS SPECIALIST Motor: Normal RUE, Normal LUE, Normal RLE, Normal LLE, Normal Face ACADEMIC AFFAIRS SPECIALIST Sensory: Normal: RUE, LUE, Face, Deficit: RLE (paresthesia toes), LLE - Cardiac Rhythm: Regular Murmur: None JVD: No Carotid Bruit: No - Pulmonary Breath Sounds: bilateral Clear Respiratory Effort: Symmetrical Anesthesia Assess/Plan ASA Score: 3 (HTN DM) Modified [place] Scale for Level of Consciousness: Cooperative, oriented, and tranquil Anesthetic Plan: General, Regional Monitoring Plan: Standard Monitors Recovery Plan: Other (Discussed GA and RA, agrees to proceed)
[2017-05-27] MEDS ORDERED: Bupivacaine/Clonidine Syringe 1 EACH SYRINGE ONE (12:48)
[2017-05-27] MEDS ORDERED: Ethanol\\Acetic Acid\\Na Ace\\Ben 1,000 ML IRRIG.SOLN IR ONE (12:56)
[2017-05-27] MEDS ORDERED: Lidocaine -MPF 2% 2 ML VIAL ONE (13:32)
[2017-05-27] MEDS ORDERED: *HR* Propofol 200 MG/20 ML VIAL IVP ONE (13:32)
[2017-05-27] MEDS ORDERED: *HR* FentaNYL (PF) 100 MCG/2 ML VIAL ONE ×2 (13:32→13:39)
[2017-05-27] MEDS ORDERED: *HR* Midazolam HCl 2 MG/2 ML VIAL ONE (13:32)
--- NOTE | 2017-05-27 13:49 | Anesthesia Procedures ---
Date of Encounter: 05/27/17 Time of Encounter: 13:47 Procedures: Anesthesia - Nerve Block Procedure Date: 05/27/17 Time: 13:47 Allergies/Adv Reactions: Influenza Virus Vaccines Adverse Reaction (Verified 05/27/17 12:55) Anaphylaxis nicotine Adverse Reaction (Verified 05/27/17 12:55) flu like symptoms Pre-op Diagnosis: oa left knee Surgical Procedure: left total knee Checklist: Correct Patient Identifier, Correct procedure, History checked Correct side: Left Blood Thinner: No Monitor Applied: EKG, BP, Pulse Oximetry Supplemental Oxygen via Nasal Cannula (L/min): 2 Sedation: Versed (mg): 2 Sedation: Fentanyl (mcg): 100 Indication: Post Op Analgesia Pre-op Neuro Deficits: No Block Type: Femoral, Other (ipack) Catheter placed: No Sterile Technique: Yes Ultrasound used: Yes Anatomy identified: Yes Visual spread of Local: Yes Neuro Stimulation: No Blood on Needle Aspiration: No Smooth Injection of Local: Yes Pain with Injection of Local: No Prep: Chlorhexadine Needle: 22 x 50 mm Stimuplex (femoral) Local: 0.25% Bupivicaine w/Clonidine 20 mcg/cc (ipack 20 cc), Ropivacaine (30ml 0.5% ropivicaine for femoral) Volume (cc): 50 Number of Attempts: 1 Complications: None/effective block
[2017-05-27] MEDS ORDERED: Ondansetron 4 MG/2 ML VIAL IVP ONE (13:50)
[2017-05-27] MEDS ORDERED: *HR* HYDROmorphone (PF) 1 MG/ML SYRINGE IVP PRN ×2 (13:50→15:50)
--- NOTE | 2017-05-27 13:52 | Orthopedic Operative Note ---
Date of procedure: 05/27/17 Pre-op diagnosis: Left knee arthritis Post-op diagnosis: same Procedure: Procedure: Left Total knee replacement Estimated blood loss: 200 cc Hardware: Metal and polyethylene replacement. Arthrex Femur: 5 Tibia: 5 PS insert: 14 Patella: 37 Exam Under anesthesia: Loss of full extension 50 degrees flexion to 120 degrees no instability Procedural Notes: Grade 4 arthritic changes all 3 compartments. Operative procedure: The patient was brought to the operating room and placed on the operating room table. After general anesthesia was administered the operative knee was examined. Findings were noted in the exam under anesthesia. The operative extremity was prepped and draped in sterile surgical fashion. The patient received IV antibiotics prior to skin incision. A standard midline incision was made centered over the patella. The incision was made through the skin and subcutaneous tissue. A medial parapatellar tendon approach was performed. Care was taken to preserve tissue along the medial aspect of the patella. And to protect the patella tendon. The deep MCL was released off the medial tibia. The infra patella fat pad was excised. Knee was brought into flexion. Patient noted to have grade 4 arthritic changes all 3 compartments. The entry hole was made for the intramedullary femoral guide. The guide was seated in 6 degrees of valgus. Anterior cut was made followed by the distal cut. The ACL the PCL the medial and the lateral menisci were excised. The tibia was subluxed forward. The entry hole was made for the intramedullary tibial guide. Guide was seated to resect 2 mm off the more abnormal side. The knee was brought into flexion the distal femur was sized to a 5. The femoral guide was seated, the anterior cut was made followed by the posterior condylar cut, followed by the chamfer cuts. The finishing guide was seated the box cut was made and the lug holes were drilled. The tibia was sized to a 5, the tibial tray was seated and prepared with the large drill followed by the fin cutter. Trial reduction revealed full extension no varus valgus instability with the appropriate 14 PS Samina. The patella was everted and cut was made at the level of the insertion of the quadriceps and patella tendon. The patella was sized to a 37 the guide was seated and the lug holes are drilled. Trial reduction revealed excellent patella tracking. All trial components were removed all bony surfaces were irrigated. The tibia was cemented first followed by the femur. The 14 PS Samina was seated and the knee was brought into full extension. The patella was cemented and held in place with the patellar holding clamp. After the cement had hardened, the knee sat for 2 minutes with a Betadine saline solution. The knee was closed by the PA. The knee was then irrigated out with 2 L of pulse irrigation. The extensor mechanism was closed with #2 FiberWire suture and #2 PDS suture. The subcutaneous tissue was then irrigated and closed deep with #1 PDS suture superficially with 0 PDS suture and skin was closed with skin aroldo. The patient was then placed in a sterile dressing and a postoperative brace extubated and transferred to recovery room in stable condition. Anesthesia: GETA Surgeon: Too Schmidt Was there an assistant district attorney present: Yes Underwriting Service Representative: Yarelis Yañez Estimated blood loss (cc): 200 Condition: stable Disposition: PACU
[2017-05-27] MEDS ORDERED: Ondansetron 4 MG/2 ML VIAL ONE (14:05)
[2017-05-27 15:17] LABS: Hematocrit 36.4 % (35.3-44.9); Hemoglobin 11.3 g/dL (11.5-15.4)
--- NOTE | 2017-05-27 15:26 | Anesthesia Evaluation Post Op ---
Date of Encounter: 05/27/17 Time of Encounter: 15:30 - Vital Signs Vital Signs: Vital Signs/O2 Sat/Glucose, Most Current Temp Pulse Resp BP Pulse Ox 05/27/17 15:17 75 16 141/59 94 05/27/17 15:07 98.3 F 75 16 138/59 95 05/27/17 14:57 73 16 127/56 97 05/27/17 14:47 73 16 124/54 96 05/27/17 14:37 98.9 F 88 18 135/69 98 05/27/17 13:00 90 16 128/67 99 05/27/17 12:47 85 18 145/71 97 05/27/17 11:59 97.7 F 97 18 116/70 94 05/27/17 11:56 97.7 F 97 18 116/70 94 - Lungs Lungs: Clear Ascult./Percussion - Airway Airway: Non-obstructed - Cardiovascular Regular Rate - Mental Status Mental Status: Alert & Oriented, Answers Appropriately - Pain Pain Scale: 1 - Nausea Vomiting Nausea Vomiting: Not Present - Hydration Hydration: Ice chips - Discharge PostOp Status: Transfer Patient to floor
[2017-05-27] MEDS ORDERED: MOM Conc 10 ML UD.LIQ PO PRN (15:50)
[2017-05-27] MEDS ORDERED: *HR* Dextrose 50 % in Water (Syg) 50 ML SYRINGE IVP PRN (15:50)
[2017-05-27] MEDS ORDERED: Naloxone 0.4 MG/ML INJ IVP PRN (15:50)
[2017-05-27] MEDS ORDERED: Dextrose Gel 15 GM/37.5 ML TUBE PO PRN ×2 (15:50)
[2017-05-27] MEDS ORDERED: Ringers Solution, Lactated 1,000 ML IVC SCH (15:50)
[2017-05-27] MEDS ORDERED: D5% in Water 1,000 ML IVC PRN (15:50)
[2017-05-27] MEDS ORDERED: Temazepam 15 MG CAPSULE PO PRN (15:50)
[2017-05-27] MEDS ORDERED: Ondansetron 4 MG/2 ML VIAL IVP PRN (15:50)
[2017-05-27] MEDS ORDERED: *HR* OxyCODONE Immed Rel 5 MG TABLET PO PRN (15:50)
[2017-05-27] MEDS ORDERED: Sennosides 8.6 MG TABLET PO PRN (15:50)
[2017-05-27] MEDS ORDERED: *HR* Enoxaparin 30 MG/0.3 ML SYRINGE SQ SCH (18:00)
[2017-05-27] MEDS: CeFAZolin Premix DUPLEX 2,000 MG/50 ML BAG IVPB SCH (18:41)
[2017-05-27] MEDS: *HR* Enoxaparin 30 MG/0.3 ML SYRINGE SQ SCH (18:42)
[2017-05-27] MEDS: Insulin LISPRO 300 UNITS/3 ML VIAL SQ SCH (18:42)
[2017-05-27] MEDS ORDERED: Insulin LISPRO 300 UNITS/3 ML VIAL SQ SCH (21:00)
[2017-05-28] MEDS: CeFAZolin Premix DUPLEX 2,000 MG/50 ML BAG IVPB SCH (01:11)
[2017-05-28] MEDS: *HR* OxyCODONE Immed Rel 5 MG TABLET PO PRN ×3 (02:49→18:15)
[2017-05-28 06:08] LABS: Hemoglobin 10.9 g/dL (11.5-15.4)
[2017-05-28 06:28] LABS: BUN/Creatinine Ratio 22 (6-26); Blood Urea Nitrogen 21 mg/dL (8-23); Carbon Dioxide 23 mEq/L (23-29); Chloride 101 mEq/L (98-107); Glucose 254 mg/dL (70-105); Osmolality,Calculated 290 (280-300); Potassium 4.4 mEq/L (3.5-5.1); Sodium 134 mEq/L (136-145); eGFR For African Americans > 60 (> 60); eGFR For Non-African Americans 59 (> 60)
[2017-05-28] MEDS: *HR* Enoxaparin 30 MG/0.3 ML SYRINGE SQ SCH (06:33)
[2017-05-28] MEDS: Insulin LISPRO 300 UNITS/3 ML VIAL SQ SCH ×3 (09:44→17:19)
--- NOTE | 2017-05-28 10:16 | Orthopedics Progress Note ---
Date of Encounter: 05/28/17 Time of Encounter: 10:16 - Assessment and Plan (1) Hypertension Current Visit: No Status: Chronic Qualifiers: Hypertension type: essential hypertension Qualified Code(s): I10 - Essential (primary) hypertension (2) Type 2 diabetes mellitus Current Visit: No Status: Chronic Qualifiers: Diabetes mellitus complication status: with neurologic complications Diabetes mellitus complication detail: with polyneuropathy Diabetes mellitus long-term insulin use: with long term care administrator use Qualified Code(s): E11.42 - Type 2 diabetes mellitus with diabetic polyneuropathy; Z79.4 - MCC (current) use of insulin (3) DVT prophylaxis Current Visit: No Status: Chronic (4) GERD (gastroesophageal reflux disease) Current Visit: No Status: Chronic Qualifiers: Esophagitis presence: esophagitis presence not specified Qualified Code(s) : K21.9 - Gastro-esophageal reflux disease without esophagitis (5) Aphthous ulcer Current Visit: No Status: Inactive (6) Osteoarthritis of left knee Current Visit: No Status: Chronic Qualifiers: Osteoarthritis type: unspecified Qualified Code(s): M17.12 - Unilateral primary osteoarthritis, left knee (7) Insulin dependent diabetes mellitus Current Visit: No Status: Chronic (8) HLD (hyperlipidemia) Current Visit: No Status: Chronic Qualifiers: Hyperlipidemia type: unspecified Qualified Code(s): E78.5 - Hyperlipidemia , unspecified (9) OAB (overactive bladder) Current Visit: No Status: Chronic (10) Depression Current Visit: No Status: Chronic Qualifiers: Depression Type: unspecified Qualified Code(s): F32.9 - Major depressive disorder, single episode, unspecified (11) Status post total right knee replacement Current Visit: No Status: Chronic (12) Status post total left knee replacement Current Visit: No Status: Acute Subjective Interval history: Patient was seen this morning doing well without complaints. Afebrile vital signs stable. Operative extremity: Neurovascularly intact Dressing clean dry and intact Calves nontender Assessment and plan: Continue with postoperative care Hematocrit 34 discharged today Objective Vital signs: Vital Signs Temp Pulse Resp BP Pulse Ox 05/28/17 10:00 96 05/28/17 07:12 98.7 F 83 16 138/74 96 05/28/17 04:25 98.5 F 79 18 134/67 95 05/27/17 23:24 98.7 F 91 19 147/62 92 05/27/17 19:36 98.0 F 91 17 142/61 91 05/27/17 17:55 96.8 F L 87 16 120/72 94 05/27/17 16:56 97.9 F 78 16 153/69 94 05/27/17 15:54 99 F 77 16 128/79 94 05/27/17 15:27 98.1 F 71 16 139/63 95 05/27/17 15:17 75 16 141/59 94 05/27/17 15:07 98.3 F 75 16 138/59 95 05/27/17 14:57 73 16 127/56 97 05/27/17 14:47 73 16 124/54 96 05/27/17 14:37 98.9 F 88 18 135/69 98 05/27/17 13:00 90 16 128/67 99 05/27/17 12:47 85 18 145/71 97 05/27/17 11:59 97.7 F 97 18 116/70 94 05/27/17 11:56 97.7 F 97 18 116/70 94 Intake and Output 05/27/17 05/28/17 05/28/17 23:59 07:59 15:59 Intake Total 530 / 530 800 / 800 1000 / 1000 Output Total 2049 Balance -1520 / -1520 -1350 / -1350 1000 / 1000 Intake: IV Fluids 50 / 50 1000 / 1000 Lactated Ringers 1,000 ML @ 75 1000 / 1000 mls/hr IVC .[id number] Rx#: [id number] Ancef Premix DUPLEX 2,000 mg In 50 / 50 50 ml @ 100 mls/hr IVPB Q8H NIKKI Rx#:[id number] Oral 480 / 480 800 / 800 Output: Urine 2049 / 2149 Other: # Voids 3 3 # Urine Diapers 1 Blood Glucose* 368 251 - Labs CBC & BMP: 05/28/17 05:48 05/28/17 05:48 Labs: Abnormal lab results Hgb 10.9 g/dL (11.5-15.4) L 05/28/17 05:48 Hct 34.0 % (35.3-44.9) L 05/28/17 05:48 Sodium 134 mEq/L (136-145) L 05/28/17 05:48 Est GFR (Non-Af Amer) 59 (> 60) L 05/28/17 05:48 Glucose 254 mg/dL (70-105) H 05/28/17 05:48 POC Glucose 251 (58-89) H 05/28/17 07:16 - VTE Documentation of Mechanical Device: Venous foot pump, device Consult Discharge Plan - Plan Referrals: Enrique Boykin DO [Primary Care Provider] -
[2017-05-28 11:17] VITALS: BP 131/78
--- NOTE | 2017-05-28 14:09 | Physician Discharge Referral ---
ExtendedCare Referral Info Transfer To: [facility] Provider in Charge: Dr Too Schmidt - Diagnosis (1) Osteoarthritis of left knee Priority: Primary Status: Chronic (2) Insulin dependent diabetes mellitus Priority: Secondary Status: Chronic (3) HTN (hypertension) Priority: Secondary Status: Chronic (4) HLD (hyperlipidemia) Priority: Secondary Status: Chronic (5) OAB (overactive bladder) Priority: Secondary Status: Chronic (6) Obesity Priority: Secondary Status: Chronic (7) Depression Priority: Secondary Status: Chronic (8) Diabetic neuropathy Priority: Secondary Status: Chronic (9) Status post total right knee replacement Priority: Secondary Status: Chronic (10) Status post total left knee replacement Priority: Primary Status: Acute Expected Duration of Placement: less than 30 days Prognosis: Good Aware of Diagnosis: Patient Aware of Prognosis: Patient - Transfer Medications Home Medications: Amitriptyline [Elavil] 50 mg PO HS 07/08/16 [History] FLUoxetine HCl [Prozac] 20 mg PO DAILY 07/08/16 [History] Fluticasone Propionate Nasal [Flonase] 50 mcg NS DAILY 07/08/16 [History] Gabapentin [Neurontin] 300 mg PO TID 07/08/16 [History] Insulin NPH Hum/Reg Insulin Hm [Humulin 70/30 Kwikpen] 60 unit SQ BID 07/08/16 [ History] Lisinopril [Zestril] 10 mg PO BID 07/08/16 [History] Metoclopramide HCl 5 mg PO ACHS 07/08/16 [History] Oxybutynin [Ditropan] 5 mg PO BID 07/08/16 [History] Primidone [Mysoline] 50 mg PO BID 07/08/16 [History] Tramadol HCl [Ultram] 50 mg PO Q4H PRN 07/08/16 [History] Aspirin Enteric Coated [Aspirin EC] 325 mg PO DAILY 21 Days #21 tablet. [Rx] OxyCODONE Immed Rel [Roxicodone 5 MG] 5 mg PO Q6HR PRN 7 Days #28 tablet [Rx] Colestipol HCl [Colestid] 2 gm PO BID 05/27/17 [History] Empagliflozin [Jardiance] 10 mg PO DAILY 05/27/17 [History] Metformin HCl [Glucophage] 1,000 mg PO BID 05/27/17 [History] Pantoprazole Sodium [Protonix] 40 mg PO DAILY 05/27/17 [History] Rosuvastatin Calcium [Crestor] 20 mg PO HS 05/27/17 [History] Allergies/Adverse Reactions: 3 Allergy/AdvReac Type Severity Reaction Status Date / Time Influenza Virus Vaccines AdvReac Anaphylaxis Verified 05/27/17 12:55 nicotine AdvReac flu like Verified 05/27/17 12:55 symptoms - Respiratory Orders Smoking Cessation: Smoking cessation has been advised. For more information, call the [place] Tobacco Quit Line at 9-534-RZQW-NOW. - Ancillary Orders May use pressure relief devices daily prn, May go on JENN w/family/respon alliance party w /meds at nurse discretion PRN, May consult with Dentist, Clean Up Helper Banquet, Case Repairer PRN - Mobility Orders Chair, Ambulate - Rehabiliation Orders Rehab Potential: Good Rehab Orders: Evaluation for Physical Therapy, Evaluation for Occupational Therapy Other: Total Knee replacement Precautions x 6 weeks Apply cold therapy wrap 3-6x/day for 20 minutes at a time. Encourage ambulation throughout the day and incentive spirometer 10x/hour. Elevate affected extremity above heart as tolerated. Brace: Wear knee immobilizer at night x 2 weeks. - Treatments Skin tear care topically daily PRN per policy List/Other: Pressure dressing placed. 10 sheets of 4x4 gauze shingled along incision, 3 ABD pads and Medipore tape applied with tension. Change dressing three times daily (every 8 hours). Cleanse incision with each dressing change with simple soap and water and pat dry. - Diet Orders Regular CERTIFICATION: I certify that the transfer of the above named patient to an Extended Care Facility is necessary for the continuing treatment of the diagnosis listed. The above information is true and accurate reflection of patient's current condition. Confidential - Redisclosure prohibited without a patient's written consent.
--- NOTE | 2017-05-28 17:33 | Event Note ---
Date of Encounter: 05/28/17 Time of Encounter: 12:00 PCR- POD#1 L TKR Schmidt 05/27/17 PCR - Patient seen at bedside. Pain control: Adequate Participating in PT. All questions and concerns addressed. Educated on use of incentive spirometer, ambulation, and hydration. Patient educated on post-operative restrictions and care. Addressed: Incision drainage from distal aspect - soaking through honeycomb. Switch to pressure dressing and change TID with soap and water cleanse to incision pat dry with each dressing change. D/C plan: ECF today.
== END 2017-05-28 18:44 | DRG 470 ==
LOC: SAMDAY 11:27 → INTOOBSV 16:08 → 3NENU 16:08
PROVIDERS: ADMIT Orthopaedic Surgery; ATTEND Orthopaedic Surgery

== ENCOUNTER 2019-03-13 19:24 | Observation (INO) ==
[2019-03-13] MEDS: 0.9 % Sodium Chloride 1,000 ML IVC SCH ×2 (20:14→21:09)
[2019-03-13 20:33] LABS: ABG Base Excess -3 mEq/L (-2 to 3); ABG HCO3 21 mEq/L (21-27); ABG Oxygen Saturation 98 % (95-98); ABG PCO2 30 mmHg (35-45); ABG PH 7.44 pH Units (7.32-7.45); ABG PO2 96 mmHg (85-104); ABG TCO2 21 mEq/L (20-26)
[2019-03-13 20:44] LABS: Basophils % 0.3 %; Eosinophils % 0.2 %; Hematocrit 36.7 % (35.3-44.9); Hemoglobin 11.4 g/dL (11.5-15.4); Immature Granulocytes % 0.2 % (0-4); Lymphocytes # 1.4 K/mcL (0.6-4.6); Lymphocytes % 13.6 %; Mean Corpuscular HGB Conc 31.1 g/dL (31.6-35.5); Mean Corpuscular Hemoglobin 25.5 pg (28.0-33.3); Mean Corpuscular Volume 82.1 fL (83.0-100.0); Mean Platelet Volume 10.7 fL (9.4-12.4); Monocytes # 0.8 K/mcL (0.0-1.3); Monocytes % 7.8 %; Platelet Count 373 K/mcL (140-400); Red Blood Count 4.47 M/mcL (3.82-4.97); Red Cell Distribution Width 16.3 % (11.5-14.5); Segmented Neutrophils % 77.9 %; White Blood Count 10.3 K/mcL (4.3-11.1)
[2019-03-13] MEDS ORDERED: *HR* Promethazine 25 MG/ML VIAL IVP ONE (20:46)
[2019-03-13] MEDS ORDERED: Morphine Sulfate 2 MG/ML SYRINGE IVP ONE (20:47)
[2019-03-13 20:55] LABS: Bilirubin,Urine Negative (Negative); Blood,Urine Small (Negative); Clarity,Urine Clear (Clear); Color,Urine Yellow (Yellow); Glucose,Urine (UA) >=1000 mg/dL (Normal); Ketones,Urine 80 mg/dL (Negative); Leukocyte Esterase,Urine Small (Negative); Nitrite,Urine Positive (Negative); Protein,Urine Negative (Neg-Trace); Specific Gravity,Urine 1.029 (1.010-1.025); Urobilinogen,Urine Normal (Normal)
[2019-03-13 21:00] LABS: Bacteria,Urine Many per hpf (None-Few); Hyaline Casts,Urine None Seen per lpf (None-Few); Squamous Epithelial Cell,Urine Moderate per lpf (None-Few); WBC,Urine 15-30 per hpf (0-3)
[2019-03-13 21:02] LABS: BUN/Creatinine Ratio 24 (6-26); Blood Urea Nitrogen 26 mg/dL (8-23); Calcium 9.9 mg/dL (8.6-10.3); Carbon Dioxide 19 mEq/L (23-29); Chloride 99 mEq/L (98-107); Glucose 436 mg/dL (70-105); Magnesium 2.2 mg/dL (1.6-2.6); Osmolality,Calculated 306 (280-300); Phosphorous 3.6 mg/dL (2.7-4.5); Potassium 4.3 mEq/L (3.5-5.1); Salicylate < 2.5 mg/dL (15.0-30.0); Sodium 136 mEq/L (136-145); Troponin I < 0.03 ng/mL (< 0.04); eGFR For African Americans > 60 (> 60); eGFR For Non-African Americans 51 (> 60)
[2019-03-13] MEDS ORDERED: Insulin Regular, Human 100 UNIT/ML SQ ONE (21:02)
[2019-03-13 21:04] LABS: Amphetamine Screen,Urine Negative ng/mL (Cutoff=1000); Barbiturate Screen,Urine Negative ng/mL (Cutoff=200); Benzodiazepines Screen,Urine Negative ng/mL (Cutoff=200); Cannabinoid Screen,Urine Negative ng/mL (Cutoff = 50); Cocaine Screen,Urine Negative ng/mL (Cutoff= 300); Opiate Screen,Urine Negative ng/mL (Cutoff=300); Phencyclidine Screen,Urine Negative ng/mL (Cutoff=25)
[2019-03-13] MEDS ORDERED: cefTRIAXone 2,000 MG in Water for inj. (sterile) 20 ML IVP ONE (21:11)
[2019-03-13 21:15] LABS: Thyroid Stimulating Hormone 0.815 mcIU/mL (0.340-5.600)
[2019-03-13] MEDS ORDERED: Isovue-370 500 ML BOTTLE IVP ONE (22:18)
[2019-03-13] MEDS ORDERED: Ondansetron 4 MG/2 ML VIAL IVP PRN (22:32)
[2019-03-13] MEDS ORDERED: Acetaminophen 325 MG TABLET PO PRN (22:32)
[2019-03-13] MEDS ORDERED: *HR* Dextrose 50 % in Water (Syg) 50 ML SYRINGE IVP PRN (22:36)
[2019-03-13] MEDS ORDERED: Dextrose Gel 15 GM/37.5 ML TUBE PO PRN ×2 (22:36)
[2019-03-13] MEDS ORDERED: Famotidine 20 MG/2 ML VIAL IVP ONE (22:58)
[2019-03-13] MEDS ORDERED: Insulin DETEMIR 100 UNIT/ML X5UNITS SQ ONE (23:05)
[2019-03-14] MEDS: Ringers Solution, Lactated 1,000 ML IVC SCH ×2 (00:11→05:49)
[2019-03-14] MEDS: Insulin LISPRO 300 UNITS/3 ML VIAL SQ SCH ×4 (00:25→16:20)
[2019-03-14 01:23] LABS: Basophils % 0.4 %; Eosinophils # 0.1 K/mcL (0.0-0.6); Hematocrit 33.1 % (35.3-44.9); Hemoglobin 10.2 g/dL (11.5-15.4); Immature Granulocytes % 0.3 % (0-4); Lymphocytes # 1.6 K/mcL (0.6-4.6); Lymphocytes % 20.8 %; Mean Corpuscular HGB Conc 30.8 g/dL (31.6-35.5); Mean Corpuscular Hemoglobin 25.4 pg (28.0-33.3); Mean Corpuscular Volume 82.5 fL (83.0-100.0); Mean Platelet Volume 10.1 fL (9.4-12.4); Monocytes # 0.6 K/mcL (0.0-1.3); Monocytes % 7.3 %; Neutrophils # 5.5 K/mcL (1.6-8.9); Platelet Count 294 K/mcL (140-400); Red Blood Count 4.01 M/mcL (3.82-4.97); Red Cell Distribution Width 16.2 % (11.5-14.5); Segmented Neutrophils % 70.2 %; White Blood Count 7.8 K/mcL (4.3-11.1)
[2019-03-14 01:39] LABS: BUN/Creatinine Ratio 23 (6-26); Blood Urea Nitrogen 20 mg/dL (8-23); Calcium 8.8 mg/dL (8.6-10.3); Carbon Dioxide 23 mEq/L (23-29); Chloride 108 mEq/L (98-107); Glucose 251 mg/dL (70-105); Osmolality,Calculated 301 (280-300); Potassium 3.8 mEq/L (3.5-5.1); Sodium 140 mEq/L (136-145); eGFR For African Americans > 60 (> 60); eGFR For Non-African Americans > 60 (> 60)
[2019-03-14] MEDS ORDERED: *HR* Promethazine 25 MG/ML VIAL IVP ONE (03:19)
[2019-03-14] MEDS ORDERED: Prochlorperazine 10 MG/2 ML VIAL IVP PRN (05:47)
[2019-03-14] MEDS: *HR* Heparin 5,000 UNIT/ML VIAL SQ SCH ×2 (05:49→18:22)
[2019-03-14] MEDS: 0.9 % Sodium Chloride 1,000 ML IVC SCH (12:50)
[2019-03-14] MEDS ORDERED: cefTRIAXone 1,000 MG in Water for inj. (sterile) 10 ML IVPB SCH (18:00)
[2019-03-14] MEDS: Gabapentin 300 MG CAPSULE PO SCH (20:48)
[2019-03-14] MEDS: Primidone 50 MG TABLET PO SCH (20:48)
[2019-03-14] MEDS: tiZANidine 4 MG TABLET PO SCH (20:48)
[2019-03-15] MEDS: 0.9 % Sodium Chloride 1,000 ML IVC SCH (00:14)
[2019-03-15] MEDS: *HR* Heparin 5,000 UNIT/ML VIAL SQ SCH (05:27)
[2019-03-15 07:16] LABS: Hematocrit 32.6 % (35.3-44.9); Hemoglobin 9.7 g/dL (11.5-15.4); Mean Corpuscular HGB Conc 29.8 g/dL (31.6-35.5); Mean Corpuscular Hemoglobin 25.5 pg (28.0-33.3); Mean Corpuscular Volume 85.6 fL (83.0-100.0); Mean Platelet Volume 10.2 fL (9.4-12.4); Platelet Count 233 K/mcL (140-400); Red Blood Count 3.81 M/mcL (3.82-4.97); Red Cell Distribution Width 16.2 % (11.5-14.5)
[2019-03-15 08:19] LABS: % Iron Saturation 13 % (15-50); BUN/Creatinine Ratio 17 (6-26); Blood Urea Nitrogen 15 mg/dL (8-23); Calcium 8.6 mg/dL (8.6-10.3); Carbon Dioxide 23 mEq/L (23-29); Chloride 104 mEq/L (98-107); Glucose 260 mg/dL (70-105); Iron 52 mcg/dL (50-170); Osmolality,Calculated 296 (280-300); Sodium 138 mEq/L (136-145); Transferrin 293 mg/dL (203-362); eGFR For African Americans > 60 (> 60); eGFR For Non-African Americans > 60 (> 60)
[2019-03-15] MEDS: Insulin LISPRO 300 UNITS/3 ML VIAL SQ SCH ×2 (08:36→11:56)
[2019-03-15] MEDS: Gabapentin 300 MG CAPSULE PO SCH (08:36)
[2019-03-15] MEDS: tiZANidine 4 MG TABLET PO SCH (08:37)
[2019-03-15] MEDS: Primidone 50 MG TABLET PO SCH (08:37)
[2019-03-15] MEDS ORDERED: Fluticasone Propionate Nasal 50 MCG/SPRAY BOTTLE NS SCH (09:00)
[2019-03-15] MEDS ORDERED: FLUoxetine 20 MG CAPSULE PO SCH (09:00)
[2019-03-15] MEDS ORDERED: Loratadine 10 MG TABLET PO SCH (09:00)
[2019-03-15] MEDS ORDERED: Magnesium Oxide 400 MG TABLET PO SCH (09:00)
[2019-03-15 10:21] VITALS: BP 107/63
== END 2019-03-15 13:56 | disposition home health service (06) ==
LOC: 2ANU 19:24 → EMEROOARM 19:24 → SUATTDRO 21:48 → 2ANU 22:23 → 3ANU 03-14 04:47
PROVIDERS: ADMIT Internal Medicine; ATTEND Family Medicine

== ENCOUNTER 2019-10-17 15:25 | Observation (INO) ==
[2019-10-17] MEDS ORDERED: 0.9 % Sodium Chloride 1,000 ML IVC ONE (15:58)
[2019-10-17 16:45] LABS: Basophils % 0.4 %; Eosinophils # 0.1 K/mcL (0.0-0.6); Eosinophils % 1.2 %; Hematocrit 41.8 % (35.3-44.9); Hemoglobin 13.7 g/dL (11.5-15.4); Immature Granulocytes % 0.4 % (0-4); Lymphocytes # 1.6 K/mcL (0.6-4.6); Lymphocytes % 20.4 %; Mean Corpuscular HGB Conc 32.8 g/dL (31.6-35.5); Mean Corpuscular Hemoglobin 29.3 pg (28.0-33.3); Mean Corpuscular Volume 89.3 fL (83.0-100.0); Mean Platelet Volume 10.3 fL (9.4-12.4); Monocytes # 0.4 K/mcL (0.0-1.3); Monocytes % 4.9 %; Neutrophils # 5.6 K/mcL (1.6-8.9); Platelet Count 277 K/mcL (140-400); Red Blood Count 4.68 M/mcL (3.82-4.97); Red Cell Distribution Width 13.9 % (11.5-14.5); Segmented Neutrophils % 72.7 %; White Blood Count 7.7 K/mcL (4.3-11.1)
[2019-10-17 17:07] LABS: Alanine Aminotransferase 45 Units/L (7-52); Albumin 4.1 g/dL (3.5-5.7); Albumin/Globulin Ratio 1.3 (1.1-2.2); Alkaline Phosphatase 94 Units/L (34-104); Aspartate Amino Transferase 41 Units/L (13-39); BUN/Creatinine Ratio 26 (6-26); Bilirubin,Total 0.3 mg/dL (0.3-1.0); Blood Urea Nitrogen 28 mg/dL (8-23); Calcium 9.6 mg/dL (8.6-10.3); Carbon Dioxide 24 mEq/L (23-29); Chloride 93 mEq/L (98-107); Globulin 3.1 g/dL (2.4-3.5); Glucose 290 mg/dL (70-105); Osmolality,Calculated 282 (280-300); Potassium 5.7 mEq/L (3.5-5.1); Sodium 128 mEq/L (136-145); Total Protein 7.2 g/dL (6.4-8.9); eGFR For African Americans > 60 (> 60); eGFR For Non-African Americans 50 (> 60)
[2019-10-17 17:08] LABS: Troponin I < 0.03 ng/mL (< 0.04)
[2019-10-17 17:22] LABS: Thyroid Stimulating Hormone 1.277 mcIU/mL (0.340-5.600)
[2019-10-17 19:02] LABS: Bilirubin,Urine Negative (Negative); Blood,Urine Negative (Negative); Clarity,Urine Clear (Clear); Color,Urine Yellow (Yellow); Glucose,Urine (UA) >=1000 mg/dL (Normal); Ketones,Urine Negative (Negative); Leukocyte Esterase,Urine Negative (Negative); Nitrite,Urine Negative (Negative); Protein,Urine Negative (Neg-Trace); Specific Gravity,Urine 1.016 (1.010-1.025); Urobilinogen,Urine Normal (Normal)
[2019-10-17] MEDS ORDERED: D5% in Water 1,000 ML IVC PRN (21:29)
[2019-10-17] MEDS ORDERED: Ondansetron ODT 4 MG TAB.RAPDIS SL PRN (21:29)
[2019-10-17] MEDS ORDERED: *HR* Dextrose 50 % in Water (Syg) 50 ML SYRINGE IVP PRN (21:29)
[2019-10-17] MEDS ORDERED: Dextrose Gel 15 GM/37.5 ML TUBE PO PRN ×2 (21:29)
[2019-10-17] MEDS ORDERED: Naloxone 0.4 MG/ML INJ IVP PRN (21:29)
[2019-10-17] MEDS ORDERED: Calcium Gluconate 1gm/50mL 1 GM/50 ML BAG IVPB ONE (21:31)
[2019-10-17] MEDS ORDERED: Fluticasone Propionate Nasal 50 MCG/SPRAY BOTTLE NS PRN (21:32)
[2019-10-17] MEDS ORDERED: tiZANidine 4 MG TABLET PO PRN (21:32)
[2019-10-17] MEDS: *HR* Heparin 5,000 UNIT/ML VIAL SQ SCH (21:44)
[2019-10-17] MEDS: Insulin DETEMIR 100 UNIT/ML X5UNITS SQ SCH (21:45)
[2019-10-17] MEDS: Insulin LISPRO 300 UNITS/3 ML VIAL SQ SCH (21:56)
[2019-10-17] MEDS: Primidone 50 MG TABLET PO SCH (22:04)
[2019-10-17] MEDS: Budesonide/Formoterol 160/4.5 1 PUFF INH IH SCH (22:11)
[2019-10-17 22:38] LABS: BUN/Creatinine Ratio 30 (6-26); Blood Urea Nitrogen 26 mg/dL (8-23); Calcium 9.7 mg/dL (8.6-10.3); Carbon Dioxide 25 mEq/L (23-29); Chloride 99 mEq/L (98-107); Glucose 76 mg/dL (70-105); Magnesium 2.3 mg/dL (1.6-2.6); Osmolality,Calculated 280 (280-300); Phosphorous 2.9 mg/dL (2.7-4.5); Potassium 3.8 mEq/L (3.5-5.1); Sodium 133 mEq/L (136-145); eGFR For African Americans > 60 (> 60); eGFR For Non-African Americans > 60 (> 60)
[2019-10-17 23:18] LABS: Estimated Average Glucose 235 mg/dl
[2019-10-18] MEDS: Insulin LISPRO 300 UNITS/3 ML VIAL SQ SCH (04:57)
[2019-10-18] MEDS: *HR* Heparin 5,000 UNIT/ML VIAL SQ SCH (05:05)
[2019-10-18] MEDS: Budesonide/Formoterol 160/4.5 1 PUFF INH IH SCH (07:20)
[2019-10-18] MEDS ORDERED: Insulin LISPRO 300 UNITS/3 ML VIAL SQ SCH (07:30)
[2019-10-18 07:50] LABS: Basophils % 0.3 %; Eosinophils # 0.1 K/mcL (0.0-0.6); Eosinophils % 1.5 %; Hematocrit 41.4 % (35.3-44.9); Hemoglobin 13.1 g/dL (11.5-15.4); Immature Granulocytes % 0.4 % (0-4); Lymphocytes # 1.9 K/mcL (0.6-4.6); Lymphocytes % 27.1 %; Mean Corpuscular HGB Conc 31.6 g/dL (31.6-35.5); Mean Corpuscular Hemoglobin 28.4 pg (28.0-33.3); Mean Corpuscular Volume 89.6 fL (83.0-100.0); Monocytes # 0.4 K/mcL (0.0-1.3); Monocytes % 5.6 %; Neutrophils # 4.6 K/mcL (1.6-8.9); Platelet Count 278 K/mcL (140-400); Red Blood Count 4.62 M/mcL (3.82-4.97); Segmented Neutrophils % 65.1 %; White Blood Count 7.1 K/mcL (4.3-11.1)
[2019-10-18 08:13] LABS: Alanine Aminotransferase 44 Units/L (7-52); Albumin 3.9 g/dL (3.5-5.7); Albumin/Globulin Ratio 1.3 (1.1-2.2); Alkaline Phosphatase 78 Units/L (34-104); Aspartate Amino Transferase 36 Units/L (13-39); BUN/Creatinine Ratio 24 (6-26); Bilirubin,Total 0.3 mg/dL (0.3-1.0); Blood Urea Nitrogen 23 mg/dL (8-23); Calcium 9.3 mg/dL (8.6-10.3); Carbon Dioxide 26 mEq/L (23-29); Chloride 99 mEq/L (98-107); Globulin 2.9 g/dL (2.4-3.5); Glucose 155 mg/dL (70-105); Osmolality,Calculated 285 (280-300); Potassium 4.1 mEq/L (3.5-5.1); Sodium 134 mEq/L (136-145); Total Protein 6.8 g/dL (6.4-8.9); Troponin I < 0.03 ng/mL (< 0.04); eGFR For African Americans > 60 (> 60); eGFR For Non-African Americans 58 (> 60)
[2019-10-18] MEDS: Insulin DETEMIR 100 UNIT/ML X5UNITS SQ SCH (08:58)
[2019-10-18] MEDS: Primidone 50 MG TABLET PO SCH (08:58)
[2019-10-18] MEDS ORDERED: lisinopriL 10 MG TABLET PO SCH (09:00)
[2019-10-18] MEDS ORDERED: Gabapentin 300 MG CAPSULE PO SCH (09:00)
[2019-10-18 11:37] VITALS: BP 187/77
== END 2019-10-18 12:15 | disposition home or self-care (01) ==
LOC: 3BNU 15:25 → EMEROOARM 15:25 → 3BNU 20:51
PROVIDERS: ADMIT Family Medicine; ATTEND Family Medicine

== ENCOUNTER 2021-07-17 06:19 | Observation (INO) ==
[2021-07-17] MEDS ORDERED: Pantoprazole 40 MG VIAL IVP ONE (06:25)
[2021-07-17] MEDS ORDERED: 0.9 % Sodium Chloride 1,000 ML IV ONE (06:25)
[2021-07-17] MEDS ORDERED: Metoclopramide 10 MG/2 ML VIAL IVP ONE (06:25)
[2021-07-17] MEDS ORDERED: Famotidine 20 MG/2 ML VIAL IVP ONE (06:25)
[2021-07-17] MEDS ORDERED: Isovue-370 500 ML BOTTLE IVP ONE (06:26)
[2021-07-17 07:08] LABS: Basophils % 0.2 %; Eosinophils # 0.1 K/mcL (0.0-0.6); Eosinophils % 0.9 %; Hematocrit 42.8 % (35.3-44.9); Hemoglobin 13.5 g/dL (11.5-15.4); Immature Granulocytes % 0.2 % (0-4); Lymphocytes # 1.6 K/mcL (0.6-4.6); Mean Corpuscular HGB Conc 31.5 g/dL (31.6-35.5); Mean Corpuscular Hemoglobin 28.4 pg (28.0-33.3); Mean Corpuscular Volume 90.1 fL (83.0-100.0); Monocytes # 0.5 K/mcL (0.0-1.3); Monocytes % 4.2 %; Neutrophils # 9.9 K/mcL (1.6-8.9); Platelet Count 293 K/mcL (140-400); Red Blood Count 4.75 M/mcL (3.82-4.97); Red Cell Distribution Width 14.3 % (11.5-14.5); Segmented Neutrophils % 81.5 %; White Blood Count 12.1 K/mcL (4.3-11.1)
[2021-07-17 07:29] LABS: Alanine Aminotransferase 29 Units/L (7-52); Albumin/Globulin Ratio 1.3 (1.1-2.2); Alkaline Phosphatase 92 Units/L (34-104); Aspartate Amino Transferase 28 Units/L (13-39); BUN/Creatinine Ratio 24 (6-26); Bilirubin,Direct 0.1 mg/dL (0.0-0.2); Bilirubin,Indirect 0.3 mg/dL (0.0-1.0); Bilirubin,Total 0.4 mg/dL (0.3-1.0); Blood Urea Nitrogen 28 mg/dL (8-23); Calcium 9.6 mg/dL (8.6-10.3); Carbon Dioxide 23 mEq/L (23-29); Chloride 100 mEq/L (98-107); Glucose 212 mg/dL (70-105); Lipase 26 Units/L (11-82); Osmolality,Calculated 290 (280-300); Potassium 4.1 mEq/L (3.5-5.1); Sodium 134 mEq/L (136-145); Troponin I < 0.03 ng/mL (< 0.04); eGFR For African Americans 54 (> 60); eGFR For Non-African Americans 44 (> 60)
[2021-07-17] MEDS ORDERED: Azithromycin 500 MG in 0.9 % Sodium Chloride 250 ML IVPB ONE (09:56)
[2021-07-17] MEDS ORDERED: cefTRIAXone 1,000 MG in 0.9 % Sodium Chloride 10 ML IVPB ONE (09:56)
[2021-07-17] MEDS ORDERED: Melatonin 3 MG TABLET PO PRN (10:49)
[2021-07-17] MEDS ORDERED: Naloxone 0.4 MG/ML INJ IVP PRN (10:49)
[2021-07-17] MEDS ORDERED: Mag Hydrox/Al Hydrox/Simeth 30 ML UDC PO PRN (10:49)
[2021-07-17] MEDS ORDERED: Metoclopramide 10 MG/2 ML VIAL IVP PRN (10:57)
[2021-07-17 23:47] VITALS: BP 143/89; PULSE 85; TEMP 99; O2SAT 94
[2021-07-18 02:14] LABS: Basophils % 0.3 %; Eosinophils # 0.1 K/mcL (0.0-0.6); Eosinophils % 0.9 %; Hematocrit 39.5 % (35.3-44.9); Hemoglobin 12.9 g/dL (11.5-15.4); Immature Granulocytes % 0.3 % (0-4); Lymphocytes # 2.6 K/mcL (0.6-4.6); Lymphocytes % 22.5 %; Mean Corpuscular HGB Conc 32.7 g/dL (31.6-35.5); Mean Corpuscular Volume 88.8 fL (83.0-100.0); Mean Platelet Volume 10.2 fL (9.4-12.4); Monocytes # 0.6 K/mcL (0.0-1.3); Monocytes % 5.1 %; Neutrophils # 8.3 K/mcL (1.6-8.9); Platelet Count 299 K/mcL (140-400); Red Blood Count 4.45 M/mcL (3.82-4.97); Red Cell Distribution Width 14.3 % (11.5-14.5); Segmented Neutrophils % 70.9 %; White Blood Count 11.7 K/mcL (4.3-11.1)
[2021-07-18 02:35] LABS: Calcium 9.1 mg/dL (8.6-10.3); Magnesium 1.7 mg/dL (1.6-2.6); Potassium 3.6 mEq/L (3.5-5.1)
[2021-07-18] MEDS ORDERED: cefTRIAXone 2,000 MG in 0.9 % Sodium Chloride 20 ML IVPB SCH (09:00)
[2021-07-18] MEDS ORDERED: Azithromycin 500 MG in 0.9 % Sodium Chloride 250 ML IVPB SCH (11:00)
== END 2021-07-18 03:05 | disposition left against medical advice (07) ==
LOC: EMEROOARM 06:19 → 2ANU 06:19
PROVIDERS: ADMIT Hospitalist; ATTEND Hospitalist